=== PATIENT | female | born 1960 | race Caucasian/White ===

== ENCOUNTER 2024-01-13 09:12 | Outpatient (AMB) | payer BC, SELFPAY ==
--- NOTE | 2024-01-13 09:21 | A.OFFPC_ITS ---
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 Required: No Allergies No Known Allergies Allergy (Verified 01/13/24 09:21) Medication List - Last Reconciled 01/13/24 by Susan Campos PA-C spironolactone 25 mg PO DAILY Tobacco use date assessed: 01/13/24 Fall risk assessment: No Falls in past year Last assessed Fall Risk: 01/13/24 Dental Screening Dental Screen Date: 01/13/24 Did you have a dental visit in the last 12 months?: Yes Did you have a dental problem in the last 6 months where you did not have access to dental care?: No Was dental information given to patient?: Patient has dentist HPI IDA from [facility] HPI Details Patient is a 64 year old [facility] She is transferring from [facility]. She was last seen by myself in 07/11/2023. She has a significant past medical history of hypertension, tobacco use, anxiety, tubular adenoma, and of cirrhosis which is a more recent diagnosis within the last year. Psych: Has a hard time sleeping but is getting muscle cramps at night and wonders if that's why. She states that she has a hard time relaxing. She is stressed a lot with having her granddaughter at home. She recently took her in and has been helping her with her emotions and her animals. GI: She states that she has completely quit drinking. She follows with GI at [facility]. CV: Blood pressure today in the office is 114/58. She is currently on losartan 50 mg and spironolactone 25 mg daily. Colonoscopy: Double endoscopy was 12/16/2022 Mammogram: due Bone density:overdue Pap:overdue, needs referral [facility] Medical History (Updated 01/13/24 @ 12:39 by Susan Campos PA-C) Tubular adenoma of colon Tobacco use Thrombocytopenia Hypokalemia HTN (hypertension) Cirrhosis Anxiety Surgical History (Updated 01/13/24 @ 09:38 by Norma Tom CMA) H/O colonoscopy H/O esophagogastroduodenoscopy Family History (Updated 01/13/24 @ 09:40 by Norma Tom CMA) Mother Diabetes mellitus Father Dementia HTN (hypertension) Maternal Grandmother Diabetes mellitus Social History (Updated 01/13/24 @ 09:39 by Norma Tom CMA) Housing: House Patient Tobacco Use Status: Former Tobacco user Cigarette Packs Per Day: 0.5 Years Smoked: 30 e-Cigarette/Vaping Use: Never Used Second Hand Smoke Exposure: No service: No Current occupational status: retired Cognitive needs: No Hearing needs: No Vision needs: No Questionnaire PHQ-9 Over the last 2 weeks, how often have you been bothered by any of the following problems? 1. Little interest or pleasure in doing things: not at all 2. Feeling down, depressed, or hopeless: not at all 3. Trouble falling or staying asleep, or sleeping too much: nearly every day 4. Feeling tired or having little energy: several days 5. Poor appetite or overeating: not at all 6. Feeling bad about yourself - or that you are a failure or have let yourself or your family down: not at all 7. Trouble concentrating on things, such as reading the newspaper or watching television: not at all 8. Moving or speaking so slowly that other people could have noticed. Or the opposite - being so fidgety or restless that you have been moving around a lot more than usual: not at all 9. Thoughts that you would be better off or of hurting yourself in some way: not at all Total score: 4 Depression Screening Interpretation: Positive Depression Screening Done: Yes 54309 - PHQ-9 Billing: Yes Source: Developed by Drs. Roscoe Fam, Amanda Hook, Miguel A Rangel and colleagues, with an educational estee from [employer]. Thrive Questionnaire Date Thrive assessed: 01/13/24 I am a: Patient What is your living situation today?: I have a steady place to live Within the past 12 months, did the food you bought not last and you didn't have the money to get more?: Never true Within the past 12 months, did you worry whether your food would run out before you got money to buy more?: Never true Do you have trouble paying for medicines?: No Do you have trouble getting transportation to medical appointments?: No Do you have trouble paying your heating and electricity bill?: No Do you have trouble taking care of your child, family member or friend?: No Do you have trouble with day-to-day activities such as bathing, preparing meals, shopping, managing finances, etc.?: No Are you currently unemployed and looking for a job?: No Are you interested in more education?: No Please select the resources that you would like help with: None Currently or been in a relationship where the following occur: No concerns reported THRIVE Score: 0 AUDIT C Alcohol Use Questionnaire (AUDIT-C) 1. How often do you have a drink containing alcohol?: Never 3. How often do you have six or more drinks on one occasion?: Never Total Score: 0 Score Reviewed/Action Taken: Yes CONI-7 AMB Questionnaire CONI-7 Date CONI - 7 assessed: 01/13/24 Feeling nervous, anxious, or on edge: 0 = Not at all Not being able to stop or control worryin = Several days Worrying too much about different things: 1 = Several days Trouble relaxin = Not at all Being so restless that it is hard to sit still: 0 = Not at all Becoming easily annoyed or irritable: 1 = Several days Feeling afraid as if something awful might happen: 0 = Not at all Total CONI-7 score (0-4 normal; 5-9 mild; 10-14 moderate; 15-21 severe): 3 Source: Developed by Drs. Roscoe Fam, Amanda Hook, Miguel A Rangel and colleagues, with an educational estee from [employer]. CONI-7 Assessment Billing CONI-7 Assessment Tool: CONI-7 Assessment 28659 Physical exam (Primary Care) Vital Signs: Last Vital Signs Temp 98.1 F 01/13/24 09:29 Pulse 66 01/13/24 09:29 Resp 14 01/13/24 09:29 BP 114/58 L 01/13/24 09:29 Pulse Ox 98 01/13/24 09:29 Oxygen Delivery Method Room Air 01/13/24 09:29 BMI result Body Mass Index 20.4 Tobacco/Smoking Status: Tobacco use Status Tobacco use date assessed 01/13/24 01/13/24 09:32 Patient Tobacco Use Status Former Tobacco user 01/13/24 09:39 e-Cigarette/Vaping Use Never Used 01/13/24 09:39 PHQ-9: PHQ-9 Score PHQ-9: Total score 4 01/13/24 09:48 Depression Screening Interpretation: Positive Thrive Assessment: Date of Thrive Assessment Date Thrive assessed 01/13/24 01/13/24 09:41 Currently or been in a relationship where the following occur: No concerns rep orted Const Orientation/consciousness: patient oriented x3 HENMT Ears: hearing grossly normal bilaterally Neck Thyroid: Thyroid normal Lymphatic: no lymphadenopathy noted Resp Auscultation: clear to auscultation bilaterally Cardio Rate: regular rate Rhythm: regular rhythm Heart sounds: S1 normal heart sound present and S2 normal heart sound present GI Inspection: Yes normal to inspection Palpation (GI): Soft to palpation and Other GI palpation findings present (nontender, no cva tenderness) Auscultation: normoactive bowel sounds Rectal Exam - Female: deferred Skin General skin exam: no rashes or lesions noted Neuro General: patient oriented x3, gait normal and no focal motor deficits Assessment and Plan Assessment & Plan (1) Leg cramps: Code(s): R25.2 - Cramp and spasm Plan: labs ordered (2) Polyarthralgia: Code(s): M25.50 - Pain in unspecified joint Plan: as above, does not yet want to see ortho or PT (3) Foot callus: Code(s): L84 - Corns and callosities Plan: ref podiatry (4) Peripheral neuropathy: Code(s): G62.9 - Polyneuropathy, unspecified Qualifiers: Peripheral neuropathy type: polyneuropathy, unspecified Qualified Code(s): G62.9 - Polyneuropathy, unspecified Plan: labs ordered, discussed possible EMG, ? related to ETOH (5) Cirrhosis: Code(s): K74.60 - Unspecified cirrhosis of liver Qualifiers: Hepatic cirrhosis type: alcoholic cirrhosis Ascites presence: without ascites Qualified Code(s): K70.30 - Alcoholic cirrhosis of liver without ascites Plan: continue avoiding alcohol continue with GI (6) Thrombocytopenia: Code(s): D69.6 - Thrombocytopenia, unspecified Plan: labs ordered (7) HTN (hypertension): Code(s): I10 - Essential (primary) hypertension Qualifiers: Hypertension type: primary hypertension Qualified Code(s): I10 - Essential (primary) hypertension Plan: reduce losartan to 25 mg. labs ordered today. (8) Insomnia: Code(s): G47.00 - Insomnia, unspecified Qualifiers: Insomnia type: unspecified Qualified Code(s): G47.00 - Insomnia, unspecified Plan: will start trazodone. discussed risks and benefits and adverse effects. Plan bone density ordered mammo ordered auto service representative referral placed Orders: Orders Complete Blood Count Auto Diff Today D69.6 - Thrombocytopenia, unspecified, G62.9 - Polyneuropathy, unspecified, I10 - Essential (primary) hypertension, K74.60 - Unspecified cirrhosis of liver, M25.50 - Pain in unspecified joint, R25.2 - Cramp and spasm Comprehensive [place]. Panel Fast Today D69.6 - Thrombocytopenia, unspecified, G62.9 - Polyneuropathy, unspecified, I10 - Essential (primary) hypertension, K74.60 - Unspecified cirrhosis of liver, M25.50 - Pain in unspecified joint, R25.2 - Cramp and spasm Magnesium Today D69.6 - Thrombocytopenia, unspecified, G62.9 - Polyneuropathy, unspecified, I10 - Essential (primary) hypertension, K74.60 - Unspecified cirrhosis of liver, M25.50 - Pain in unspecified joint, R25.2 - Cramp and spasm Lyme IgG/IgM w/reflex to WB Today D69.6 - Thrombocytopenia, unspecified, G62.9 - Polyneuropathy, unspecified, I10 - Essential (primary) hypertension, K74.60 - Unspecified cirrhosis of liver, M25.50 - Pain in unspecified joint, R25.2 - Cramp and spasm Hemoglobin A1c Today D69.6 - Thrombocytopenia, unspecified, G62.9 - Polyneuropathy, unspecified, I10 - Essential (primary) hypertension, K74.60 - Unspecified cirrhosis of liver, M25.50 - Pain in unspecified joint, R25.2 - Cramp and spasm Vitamin B12 and Folate Today D69.6 - Thrombocytopenia, unspecified, G62.9 - Polyneuropathy, unspecified, I10 - Essential (primary) hypertension, K74.60 - Unspecified cirrhosis of liver, M25.50 - Pain in unspecified joint, R25.2 - Cramp and spasm TSH reflex Free T4 Today D69.6 - Thrombocytopenia, unspecified, G62.9 - Polyneuropathy, unspecified, I10 - Essential (primary) hypertension, K74.60 - Unspecified cirrhosis of liver, M25.50 - Pain in unspecified joint, R25.2 - Cramp and spasm Ferritin Today D69.6 - Thrombocytopenia, unspecified, G62.9 - Polyneuropathy, unspecified, I10 - Essential (primary) hypertension, K74.60 - Unspecified cirrhosis of liver, M25.50 - Pain in unspecified joint, R25.2 - Cramp and spasm IRON PROFILE Today D69.6 - Thrombocytopenia, unspecified, G62.9 - Polyneuropathy, unspecified, I10 - Essential (primary) hypertension, K74.60 - Unspecified cirrhosis of liver, M25.50 - Pain in unspecified joint, R25.2 - Cramp and spasm XR DEXA axial skeleton Today Z78.0 - Asymptomatic menopausal state MM screening mammo BI Today Z12.31 - Encounter for screening mammogram for malignant neoplasm of breast Referrals WEB DESIGN INTERN Referral Z01.419 - Encounter for gynecological examination (general) (routine) without abnormal findings Thoracic/General Surgery Referral Z87.891 - Personal history of nicotine dependence Podiatry Referral L84 - Corns and callosities Medications: New losartan 25 mg PO DAILY 90 tabs 0RF trazodone 50 mg PO BEDTIME 90 tabs 1RF Coding Level of Care Code Est Pt Level 4 (64689) Complex EM visit Add On G2211 Diagnoses Leg cramps R25.2 Polyarthralgia M25.50 Foot callus L84 Peripheral polyneuropathy G62.9 Peripheral neuropathy type: polyneuropathy, unspecified Alcoholic cirrhosis of liver without ascites K70.30 Hepatic cirrhosis type: alcoholic cirrhosis Ascites presence: without ascites Thrombocytopenia D69.6 Primary hypertension I10 Hypertension type: primary hypertension Insomnia, unspecified type G47.00 Insomnia type: unspecified Additional Codes CONI-7 Assessment Billing - CONI-7 Assessment Tool: CONI-7 Assessment 17849 ([id number])
[2024-01-13 09:29] VITALS: BP 114/58; PULSE 66; RESP 14; TEMP 36.7; O2SAT 98; BMI 20.4
== END 2024-01-13 10:22 | disposition home or self-care (01) ==
PROVIDERS: PCP Physician Assistant; Visit Provider Physician Assistant
DX: R25.2 Cramp and spasm (principal); K70.30 Alcoholic cirrhosis of liver without ascites; D69.6 Thrombocytopenia, unspecified; M25.50 Pain in unspecified joint; L84 Corns and callosities; G62.9 Polyneuropathy, unspecified; I10 Essential (primary) hypertension; G47.00 Insomnia, unspecified
CPT/HCPCS: 99214

== ENCOUNTER 2024-01-15 08:46 | Outpatient (REF) | payer BC, SELFPAY ==
[2024-01-15 11:42] LABS: MANUAL DIFF FLAG NO
[2024-01-15 11:49] LABS: Basophils Percent Auto 0.7 % (0-2); Eosinophils Absolute Auto 0.1 X10*3/uL (0.0-0.4); Eosinophils Percent Auto 2.6 % (0-4); Hematocrit 39.2 % (37.0-47.0); Hemoglobin 13.2 g/dl (12.0-16.0); Imm Gran Abs Auto 0.01 X10*3/uL (0.00-0.03); Imm Gran Pct Auto 0.4 % (0.0-0.4); Lymphocytes Absolute Auto 0.6 X10*3/uL (1.2-4.9); Lymphocytes Percent Auto 22.8 % (20-40); Mean Corpuscular HGB Conc 33.7 g/dl (31.0-35.0); Mean Corpuscular Hemoglobin 31.7 pg (27.0-33.0); Mean Platelet Volume 11.9 fL (9.4-12.3); Monocytes Absolute Auto 0.3 X10*3/uL (0.1-1.2); Monocytes Percent Auto 9.7 % (2-11); Neutrophils Absolute Auto 1.7 x10*3/uL (2.0-8.3); Neutrophils Percent Auto 63.8 % (45-73); Red Blood Count 4.17 X10*6/uL (4.20-5.50); Red Cell Distribution Width 12.9 % (11.0-16.0); White Blood Count 2.7 X10*3/uL (4.8-10.8)
[2024-01-15 11:50] LABS: Platelet Count 76 X10*3/uL (160-400)
[2024-01-15 12:04] LABS: Estimated Average Glucose 94 mg/dL; Hemoglobin A1c % 4.9 % (<6.0)
[2024-01-15 12:10] LABS: Alanine Aminotransferase 19 U/L (0-31); Albumin Level 4.1 g/dL (3.5-5.0); Alkaline Phosphatase 82 U/L (39-117); Anion Gap 11 (12-20); Aspartate Amino Transferase 29 U/L (5-31); Bilirubin Total 0.9 mg/dL (0.0-1.0); Blood Urea Nitrogen 12 mg/dL (9-16); Calcium 9.4 mg/dL (8.4-10.2); Carbon Dioxide 26 mmol/L (22-29); Chloride 106 mmol/L (96-108); Estimated Glomerular Filt Rate > 60; Glucose Fasting 87 mg/dL (60-99); Iron 80 mcg/dL (30-160); Percent Iron Saturation 32 % (15-50); Potassium 3.8 mmol/L (3.3-5.1); Sodium 139 mmol/L (135-145); Total Iron Binding Capacity 249 mcg/dL (228-428); Total Protein 6.6 g/dL (6.5-8.0); Unsaturated Iron Binding 169 ug/dL
[2024-01-15 12:29] LABS: Ferritin 235 ng/mL (10-250); TSH reflex Free T4 0.96 uIU/mL (0.32-4.0)
[2024-01-15 12:36] LABS: Folate 12.5 ng/mL (> or = 4.0); Vitamin B12 580 pg/mL (200-900)
[2024-01-18 17:14] LABS: Lyme Abs Screen <0.90 index
== END 2024-01-15 08:47 | disposition home or self-care (01) ==
LOC: HO.WFDLDS 08:46
PROVIDERS: Visit Provider Physician Assistant
DX: G62.9 Polyneuropathy, unspecified (principal); M25.50 Pain in unspecified joint; R25.2 Cramp and spasm; K74.60 Unspecified cirrhosis of liver; D69.6 Thrombocytopenia, unspecified; I10 Essential (primary) hypertension; Z13.1 Encounter for screening for diabetes mellitus
CPT/HCPCS: 36415; 80053; 82607; 82728; 82746; 83036; 83540; 83735; 84443; 85025; 86617; 86618

== ENCOUNTER 2024-02-24 10:00 | Outpatient (AMB) | payer BC, SELFPAY ==
--- NOTE | 2024-02-24 10:03 | MHC.PC.OV ---
Vital Signs 02/24/24 10:10 Height 5 ft 6.34 in Weight 128 lb 6 oz BMI 20.5 BP 128/62 Blood Pressure Location Lt brachial Position Sitting Respiration 16 Pulse 62 Pulse Source Pulse Oximeter Pulse Oximetry (%) 100 Oxygen Delivery Method Room Air Intake Visit Reasons: med follow up Intake Note: Follow up. Bilateral leg pain, upper thigh. Wants to know if she can cut her Losartan 50mg in half to use them up. Trazadone is helping getting to sleep, but not staying asleep. Allergies No Known Allergies Allergy (Verified 02/24/24 10:08) Medication List - Last Reconciled 02/24/24 by Susan Campos PA-C losartan 25 mg PO DAILY spironolactone 25 mg PO DAILY trazodone 50 mg PO BEDTIME Tobacco use date assessed: 01/13/24 Dental Screening Dental Screen Date: 01/13/24 HPI med follow up HPI Details Patient is a 64-year-old female who presents today for a follow up. At her last visit we reduced her blood pressure regimen and started her on trazodone. CV: Blood pressure today in the office is 122/62. She is on spironolactone 25 mg and losartan 25 mg. She is tolerating this well. Does not feel lightheaded. Psych: On trazodone. Tolerates it well but still wakes up at night. She still gets some muscle cramps in her legs at night. She states sometimes that will wake her up. She has not tried anything topical but really does not want to do much about this. We did review her last labs and she does state that she is usually well hydrated but does walk funny. Attributes this to her callused feet in the way she has to walk but has an appointment with podiatry next week. [facility] Medical History (Updated 02/24/24 @ 10:42 by Susan Campos PA-C) Cirrhosis HTN (hypertension) Personal history of nicotine dependence Thrombocytopenia Tubular adenoma of colon Hypokalemia Anxiety Surgical History (Updated 02/15/24 @ 15:34 by Noreen Landa PA-C) History of esophagogastroduodenoscopy (EGD) History of colonoscopy Family History (Updated 01/13/24 @ 09:40 by Norma Tom CMA) Mother Diabetes mellitus Father Dementia HTN (hypertension) Maternal Grandmother Diabetes mellitus Social History (Updated 01/13/24 @ 09:39 by Norma Tom CMA) Housing: House Patient Tobacco Use Status: Former Tobacco user Cigarette Packs Per Day: 0.5 Years Smoked: 30 e-Cigarette/Vaping Use: Never Used Second Hand Smoke Exposure: No service: No Current occupational status: retired Cognitive needs: No Hearing needs: No Vision needs: No Questionnaire Thrive Questionnaire Date Thrive assessed: 01/13/24 CONI-7 AMB Questionnaire CONI-7 Date CONI - 7 assessed: 01/13/24 Source: Developed by Drs. Roscoe Fam, Amanda Hook, Miguel A Rangel and colleagues, with an educational estee from [employer]. Physical exam (Primary Care) Vital Signs: Last Vital Signs Pulse 62 02/24/24 10:10 Resp 16 02/24/24 10:10 BP 128/62 02/24/24 10:10 Pulse Ox 100 02/24/24 10:10 Oxygen Delivery Method Room Air 02/24/24 10:10 BMI result Body Mass Index 20.5 Tobacco/Smoking Status: Tobacco use Status Tobacco use date assessed 01/13/24 02/24/24 10:05 Patient Tobacco Use Status Former Tobacco user 02/24/24 10:05 e-Cigarette/Vaping Use Never Used 02/24/24 10:05 Thrive Assessment: Date of Thrive Assessment Date Thrive assessed 01/13/24 02/24/24 10:05 Const Orientation/consciousness: patient oriented x3 HENMT Ears: hearing grossly normal bilaterally Neck Thyroid: Thyroid normal Lymphatic: no lymphadenopathy noted Resp Auscultation: clear to auscultation bilaterally Cardio Rate: regular rate Rhythm: regular rhythm Heart sounds: S1 normal heart sound present and S2 normal heart sound present GI Inspection: Yes normal to inspection Palpation (GI): Soft to palpation and Other GI palpation findings present (nontender, no cva tenderness) Auscultation: normoactive bowel sounds Rectal Exam - Female: deferred Skin General skin exam: no rashes or lesions noted Neuro General: patient oriented x3, gait normal and no focal motor deficits Results Reviewed Results Reviewed: Laboratory Tests 01/15/24 08:48 Sodium 139 Potassium 3.8 Chloride 106 Carbon Dioxide 26 Anion Gap 11 L BUN 12 Creatinine 0.62 Estimated GFR > 60 Fasting Glucose 87 Estimat Average Glucose 94 Hemoglobin A1c % 4.9 Calcium 9.4 Magnesium 2.0 Iron 80 TIBC 249 Ferritin 235 Total Bilirubin 0.9 AST 29 ALT 19 Alkaline Phosphatase 82 Total Protein 6.6 Albumin 4.1 Vitamin B12 580 Folate 12.5 TSH 0.96 Assessment and Plan Assessment & Plan (1) Thrombocytopenia: Code(s): D69.6 - Thrombocytopenia, unspecified Plan: will monitor cbc (2) Leukopenia: Code(s): D72.819 - Decreased white blood cell count, unspecified Qualifiers: Leukopenia type: unspecified Qualified Code(s): D72.819 - Decreased white blood cell count, unspecified Plan: as above (3) HTN (hypertension): Code(s): I10 - Essential (primary) hypertension Qualifiers: Hypertension type: primary hypertension Qualified Code(s): I10 - Essential (primary) hypertension Plan: bp wnl. continue reduced losartan (4) Leg cramps: Code(s): R25.2 - Cramp and spasm Plan: will try magnesium cream and let me know (5) Insomnia: Code(s): G47.00 - Insomnia, unspecified Qualifiers: Insomnia type: unspecified Qualified Code(s): G47.00 - Insomnia, unspecified Plan: We will increase the trazodone. Follow up in a few months. Sooner if needed. Patient understands and agrees with the plan. Medications: New trazodone 100 mg PO BEDTIME 90 tabs 3RF Discontinued trazodone Discontinued Reason: Doctor's Order 50 mg PO BEDTIME 90 tabs 1RF Coding Level of Care Code Est Pt Level 4 (54158) Complex EM visit Add On G2211 Diagnoses Thrombocytopenia D69.6 Leukopenia, unspecified type D72.819 Leukopenia type: unspecified Primary hypertension I10 Hypertension type: primary hypertension Leg cramps R25.2 Insomnia, unspecified type G47.00 Insomnia type: unspecified
[2024-02-24 10:10] VITALS: BP 128/62; PULSE 62; RESP 16; O2SAT 100; BMI 20.5
== END 2024-02-24 10:57 | disposition home or self-care (01) ==
PROVIDERS: PCP Physician Assistant; Visit Provider Physician Assistant
DX: D69.6 Thrombocytopenia, unspecified (principal); D72.819 Decreased white blood cell count, unspecified; I10 Essential (primary) hypertension; R25.2 Cramp and spasm; G47.00 Insomnia, unspecified
CPT/HCPCS: 99214

== ENCOUNTER 2024-02-25 12:52 | Outpatient (REF) | payer BC, SELFPAY ==
--- NOTE | ~2024-02-25 | MM_ITS ---
EXAMINATION: BONE DENSITOMETRY CLINICAL INDICATION: Asymptomatic menopausal state. COMPARISON: This is the patient's baseline examination. TECHNIQUE: Using a [employer] DXA System (software version: 13.1) manufactured by [employer], dual-energy x-ray absorptiometry was performed of the lumbar spine and left hip. The images are of good technical quality. Summary results are attached. FINDINGS: LEFT FEMUR, NECK: BMD 0.771 g/cm2, Z-score -0.3, T-score -1.9, osteopenia. LEFT FEMUR, TOTAL: BMD 0.778 g/cm2, Z-score -0.5, T-score -1.8, osteopenia. AP SPINE L1-L4: BMD 1.110 g/cm2, Z-score 1.2, T-score -0.6, normal. IDENTIFIED RISK FACTORS: Menopause, alcohol use, parental hip fracture, history of fracture (adult), current smoker. HISTORY OF FRACTURE: Spine. MEDICATIONS: Calcium. MM/XR DEXA axial skeleton IMPRESSION: 1. DIAGNOSIS: Osteopenia based on the lowest T-score value of -1.9 in the femoral neck applying World Health Organization criteria. 2. 10-YEAR FRACTURE RISK PREDICTION, FRAX: Major osteoporotic fracture (clinical spine, forearm, hip or shoulder) 31.0%. Hip fracture 6.0%. 3. Treatment Recommendations: NOF guidelines recommend consideration for treatment in postmenopausal women and men age 50 and older presenting with the following: -A hip or vertebral (clinical or morphometric) fracture. -T-score less than or equal to -2.5 at the femoral neck or spine after appropriate evaluation to exclude secondary causes. -Low bone mass at the hip or spine and a 10-year fracture probability by FRAX of greater than or equal to 3% for hip fracture or greater than or equal to 20% for major osteoporotic fracture based on the [place] adapted WHO algorithm. 4. Other Recommendations: All treatment decisions require clinical judgment and consideration of individual patient factors, including patient preferences, comorbidities, previous drug use, risk factors not captured in the FRAX model (e.g. frailty, falls, vitamin D deficiency, increased bone turnover, interval significant decline in bone density) and possible under or overestimation of fracture risk by FRAX. Additional medical evaluation for secondary cause of low bone mineral density may be appropriate. FUTURE SCAN RECOMMENDATION: People with diagnosed cases of osteoporosis or at high risk for fracture should have regular bone mineral density tests. For patients eligible for Medicare, routine testing is allowed once every 2 years. The testing frequency can be increased to one year for patients who have rapidly progressing disease, those who are receiving or discontinuing medical therapy to restore bone mass, or have additional risk factors. Electronically signed by: Carlos Harvey MD 03/02/2024 11:56 AM EDT
--- NOTE | ~2024-02-25 | MM_ITS ---
EXAMINATION: MM SCREENING DIGITAL BREAST TOMOSYNTHESIS, BILATERAL CLINICAL INFORMATION: Screening. Asymptomatic. COMPARISON: Mammography: Comparison is made with available priors TECHNIQUE: Digital breast mammography with tomosynthesis is performed in both the craniocaudal and mediolateral oblique views along with computer-aided detection (CAD). FINDINGS: There are scattered areas of fibroglandular density (ACR BI-RADS breast composition Category b). There are no significant masses, abnormal calcifications, or other abnormalities. MM/MM tomosynthesis screening BI IMPRESSION: No mammographic evidence of malignancy. ASSESSMENT: BI-RADS BI-RADS 1 - Negative RECOMMENDATION: Routine annual mammography screening. 1 year F/U This examination should not preclude the clinical evaluation of a suspicious palpable abnormality. This patient's information was entered into a reminder system with a target due date for their next mammogram. Electronically signed by: Serene Doss DO 03/13/2024 02:24 PM EDT
== END 2024-02-25 12:53 | disposition home or self-care (01) ==
LOC: HO.MAMMO 12:52
PROVIDERS: PCP Physician Assistant; Visit Provider Physician Assistant
DX: Z12.31 Encounter for screening mammogram for malignant neoplasm of breast (principal); Z13.820 Encounter for screening for osteoporosis; Z78.0 Asymptomatic menopausal state
CPT/HCPCS: 77063; 77067; 77080

== ENCOUNTER → 2024-02-25 13:15 | Outpatient (BNV) | payer BC, SELFPAY | PROVIDERS: PCP Physician Assistant; Visit Provider Internal Medicine | DX: Z12.31 Encounter for screening mammogram for malignant neoplasm of breast (principal) | CPT/HCPCS: 77063; 77067 ==

== ENCOUNTER 2024-03-11 10:10 | Outpatient (AMB) | payer BC, SELFPAY ==
--- NOTE | 2024-03-11 07:48 | A.OFFVIS_ITS ---
Intake Visit Reasons: Former Smoker Allergies No Known Allergies Allergy (Verified 02/24/24 10:08) HPI HPI Former Smoker: Details: Initial visit for this 64yo former smoker with a 22PYH. Patient started smoking at age 17 for 45 years at 1/2ppd. She quit 2 years ago - 02/2022. Does use non-nicotine vape pen. . Denies marijuana use. Denies second hand smoke exposure. Denies exposure to chemicals or substances like asbestos. . Denies known family history of lung cancer. Denies personal history of cancers. Denies chest CT in last year. . Denies recent travel outside the [place]. Denies recent respiratory illness or recent hospitalization for respiratory issues. Denies testing positive for COVID. Admits receiving COVID Vaccine. x 2. . Denies fever, chills, new/worsening cough, hemoptysis, hoarseness or dysphagia. Denies significant chest pain, significant dyspnea or unintentional weight loss. Patient Lung Cancer Screening Questionnaire reviewed with patient by provider. . Shared Decision Making Completed. Patient meets criteria. Discussed in detail with patient, the risk vs benefit of LDCT screening. Patient consents to proceed with scan. Discussed and encouraged continued smoking cessation. [facility]LY [facility], [facility] Medical History (Updated 03/11/24 @ 10:11 by Noreen Landa PA-C) Cirrhosis HTN (hypertension) Personal history of nicotine dependence Thrombocytopenia Tubular adenoma of colon Hypokalemia Anxiety Surgical History (Updated 03/11/24 @ 10:27 by Noreen Landa PA-C) History of foot surgery History of nasal septoplasty History of esophagogastroduodenoscopy (EGD) History of colonoscopy Family History (Updated 01/13/24 @ 09:40 by Norma Tom CMA) Mother Diabetes mellitus Father Dementia HTN (hypertension) Maternal Grandmother Diabetes mellitus Social History (Updated 03/11/24 @ 10:11 by Noreen Landa PA-C) Housing: House Patient Tobacco Use Status: Former Tobacco user Years Smoked: (onset 17yo, 1/2ppd x 45yrs, 22pyh - quit 02/2022) e-Cigarette/Vaping Use: Never Used Second Hand Smoke Exposure: No service: No Current occupational status: retired Cognitive needs: No Hearing needs: No Vision needs: No Assessment & Plan Assessment & Plan (1) Personal history of nicotine dependence: Comment: (onset 17yo, 1/2ppd x 45yrs, 22pyh - quit 02/2022) Code(s): Z87.891 - Personal history of nicotine dependence Category: Medical Plan: - SDM visit completed today in office. - Patient meets criteria for LDCT for lung cancer screening purposes and is asymptomatic. - Smoking cessation counseling offered. Patients can always call [phone]. - Will arrange for a LDCT scan of the chest for screening purposes at [facility]. - Risks, benefits, and alternatives were discussed in detail and the patient agrees to proceed. - Risks discussed include but are not limited to: radiation exposure, anxiety during testing and while awaiting results, false negatives, false positives and possibility of additional intervention such as further imaging or surgical procedures for benign disease. - Benefits are obviously detection of lung cancer at an early stage which can lead to improved outcomes. - Discussed the importance of screening program compliance with adherence to yearly LDCT scan as scheduled - or sooner interval scans for personalized screening regimen. - Discussed follow up plan. Our office will send a letter discussing results and if needed set up phone call and office visit based on CT findings. - Patient educated on results categorization and the management decisions for suspicious findings potentially found on the screening LDCT scan. Any patient with a Lung RADS score of 3 or 4 will be reviewed by a multidisciplinary team at [facility] to form a plan of action in regards to scan findings. - If further work up is warranted for a suspicious lung finding this will be followed by the Lung Cancer Screening program in conjunction with the Thoracic Surgery Department at [facility]. - A copy of the office note and LDCT will be sent to the patient's PCP - as well as documentation on any associated further plans of care. - Incidental findings on LDCT are the PCP's responsibility. These findings are indicated with an S finding on the LDCT Assessment. A note discussing the findings will be sent to the PCP who is then responsible for further management. - All questions answered.? Coding Level of Care Code Lung Cancer Screening G0296 Diagnoses Personal history of nicotine dependence Z87.891
== END 2024-03-11 10:59 | disposition home or self-care (01) ==
PROVIDERS: PCP Physician Assistant; Visit Provider Physician Assistant Medical
DX: Z87.891 Personal history of nicotine dependence (principal)
CPT/HCPCS: G0296

== ENCOUNTER 2024-03-11 10:23 | Outpatient (REF) | payer BC, SELFPAY ==
--- NOTE | ~2024-03-11 | CT_ITS ---
EXAMINATION: CT LOW-DOSE SCREENING CHEST WITHOUT CONTRAST CLINICAL INFORMATION: Personal history of nicotine dependence. The patient has a 48 pack-year history of smoking, having quit 2 years ago. COMPARISON: None available. TECHNIQUE: Multidetector volumetric CT imaging of the chest is performed on a Siemens SOMATOM Definition scanner without contrast using low dose technique. Additional 2D coronal and sagittal reformatted images and axial 3D maximum intensity projection (MIP) images are generated on the CT workstation. This CT examination was performed using dose optimization techniques as appropriate, variously including the following: *Automated exposure control *Adjustment of mA and/or kV according to patient size (this includes techniques or standardized protocols for targeted exams where dose is matched to indication/reason for exam; i.e. extremities or head) *Use of iterative reconstruction technique TOTAL EXAM DLP: 35 mGy-cm. CTDIvol: 1.0 mGy. FINDINGS: PULMONARY NODULES: At least 10 small pulmonary nodule [ ] densities are seen scattered throughout the lungs and gaines images of all have been saved. Some are calcified granulomas, some are not calcified. There is a disc-like density seen measuring 10.4 x 6.3 x 3.5 mm in the right upper lobe in an area of pleural-parenchymal scarring (see gaines images). Multiple other smaller nodular densities are seen the majority of which are under 5 mm in size. LUNGS: Lungs bilaterally symmetrically expanded. Moderate biapical pleural-parenchymal scarring is present, right greater than left. There is [id number] emphysema and bronchial thickening without bronchiectasis. No effusion or pneumothorax. Central airways patent. MEDIASTINUM: No mediastinal, hilar or axillary adenopathy or free fluid collection. CORONARY ARTERY CALCIFICATION: None visualized on this study. THYROID GLAND: Unremarkable to the extent seen. CARDIOVASCULAR STRUCTURES: Aortic and heart size normal. No pericardial effusion. CHEST WALL/AXILLA: Unremarkable. UPPER ABDOMEN: Included portions of the solid organs in the upper abdomen unremarkable on noncontrast imaging. OSSEOUS STRUCTURES: No suspicious focal findings. CT/CT lung screening IMPRESSION: Initial exam demonstrates multiple lung nodules the largest of which measures 10.4 x 6.3 x 3.5 mm (mean 6.7 mm). This must be considered suspicious by lung RADS criteria as it is a baseline nodule of greater than 6 mm. ASSESSMENT: 1. Lung-RADS Category 4A: Suspicious findings. N/A 2. Lung-RADS Category S: Negative. There are no clinically significant or potentially clinically significant findings not related to the lungs requiring urgent additional evaluation. RECOMMENDATION: A 3-month follow up low-dose lung CT scan is recommended. An order for CT LUNG CANCER SCREENING SHORT INTERVAL FOLLOWUP ([id number]) can be placed. Electronically signed by: Rojelio Kruger MD 05/05/2024 05:00 PM RUSLAN NAVA
== END 2024-03-11 10:24 | disposition home or self-care (01) ==
LOC: HO.CT 10:23
PROVIDERS: PCP Physician Assistant; Visit Provider Physician Assistant Medical
DX: Z12.2 Encounter for screening for malignant neoplasm of respiratory organs (principal); Z87.891 Personal history of nicotine dependence
CPT/HCPCS: 71271

== ENCOUNTER 2024-06-29 10:35 | Outpatient (AMB) | payer BC, SELFPAY ==
[2024-06-29 10:58] VITALS: BP 126/84; BMI 21.2
--- NOTE | 2024-06-29 10:58 | MHC.OFFVIS ---
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 Attempting to eat a healthy diet with calcium and vitamin D and stays active with exercise. Last pap smear; 2020, negative per verbal report [facility]. She declines STD testing. Last mammogram; 2023. Colonoscopy is UTD. Denies any family history of breast, ovarian or colon cancer. [facility] Medical History Cirrhosis HTN (hypertension) Personal history of nicotine dependence Thrombocytopenia Tubular adenoma of colon Hypokalemia Anxiety Surgical History History of foot surgery History of nasal septoplasty History of esophagogastroduodenoscopy (EGD) History of colonoscopy Family History Mother Diabetes mellitus Father Dementia HTN (hypertension) Maternal Grandmother Diabetes mellitus Social History Housing: House Patient Tobacco Use Status: Former Tobacco user Years Smoked: (onset 17yo, 1/2ppd x 45yrs, 22pyh - quit 02/2022) e-Cigarette/Vaping Use: Never Used Second Hand Smoke Exposure: No service: No Current occupational status: retired Cognitive needs: No Hearing needs: No Vision needs: No Female Reproductive History Menstrual Total pregnancies: 5 Full term: 4 Number of Living Children: 4 Ab induced: 1 Review of Systems Const All systems reviewed & are unremarkable except as noted in HPI and below Reports as per HPI Eyes Reports no additional complaints ENT Reports no additional complaints Card Reports no additional complaints Resp Reports no additional complaints GI Reports as per HPI and Reports no additional complaints Reports as per HPI Musc Reports no additional complaints Skin/Breast Reports as per HPI Neuro Reports no additional complaints Psych Reports no additional complaints Endo Reports no additional complaints Christiano/Lymph Reports no additional complaints Aller/Immun Reports no additional complaints Physical Exam Vital Signs: Last Vital Signs BP 126/84 06/29/24 10:58 BMI result Body Mass Index 21.2 Const General: cooperative, healthy appearing, no acute distress, well developed and alert Orientation/consciousness: patient oriented x3 HEENT Head: Yes normal to inspection Eyes General: appearance normal, both eyes and all related structures Neck Neck: Yes normal visual inspection Thyroid: Thyroid normal Chest Chest palpation & inspection: normal inspection of the chest and other (no puckering, dimpling, peau de orange, retraction, discharge, masses) Breast/axilla inspection: normal inspection of the breasts Breast/axilla palpation: normal palpation of the breasts Resp Effort & Inspection: normal respiratory effort GI Inspection: Yes normal to inspection Palpation (GI): Soft to palpation Rectal Exam - Female: deferred General: Yes bladder normal to palpation and Yes other (Urethral Curuncle) External Female Exam: normal external appearance and normal appearance of the urethra Speculum Exam - Vagina: normal palpation and vagina atrophic Speculum Exam - Cervix: normal appearance of the cervix and normal palpation Bimanual exam- vagina & uterus: normal bimanual exam, normal palpation, uterine size normal, bladder normal to palpation, normal palpation and non-tender Bimanual Exam- Adnexa, other: no masses Skin General skin exam: no rashes or lesions noted Rashes: no rashes Neuro General: patient oriented x3 Cognition (Neuro): normal cognition Extrem General: Yes normal to inspection Psych Attitude: cooperative Thought process: Normal thought process present Results AMB Urinalysis, Automated UA Leukoctes 0 Teresa/uL Last Edit by OMAR López on 06/29/24 11:08 UA Nitrite Negative Last Edit by OMAR López on 06/29/24 11:08 UA Urobilinogen 0.5 mg/dL Last Edit by OMAR López on 06/29/24 11:08 UA Protein 0 mg/dL Last Edit by OMAR López on 06/29/24 11:08 UA pH 6.0 Last Edit by Marta Goddard RMA on 06/29/24 11:08 UA Blood 0 Sidney/uL Last Edit by Marta GoddardOMAR on 06/29/24 11:08 UA Specific [place] 1.010 Last Edit by Marta GoddardOMAR on 06/29/24 11:08 UA Ketone Negative Last Edit by Marta GoddardOMAR on 06/29/24 11:08 UA Bilirubin 0 mg/dL Last Edit by Marta OMAR Mahoney on 06/29/24 11:08 UA Glucose 0 mg/dL Last Edit by Marta Abrahan PadminiOMAR mora on 06/29/24 11:08 Results Reviewed Results Reviewed: Laboratory Last Values Urine pH (Auto) 6.0 06/29/24 11:07 Specific [place] (Auto) 1.010 06/29/24 11:07 Urine Protein (Auto) 0 mg/dL 06/29/24 11:07 Glucose (UA)(Auto) 0 mg/dL 06/29/24 11:07 Urine Ketones (Auto) Negative 06/29/24 11:07 Urine Blood (Auto) 0 Sidney/uL 06/29/24 11:07 Urine Nitrite (Auto) Negative 06/29/24 11:07 Urine Bilirubin (Auto) 0 mg/dL 06/29/24 11:07 Urine Urobilinogen (Auto) 0.5 mg/dL 06/29/24 11:07 Leukocyte Esterase (Auto) 0 Teresa/uL 06/29/24 11:07 Assessment & Plan Assessment & Plan (1) Encounter for well woman exam with routine gynecological exam: Code(s): Z01.419 - Encounter for gynecological examination (general) (routine) without abnormal findings Category: Medical (2) Atrophic vaginitis: Code(s): N95.2 - Postmenopausal atrophic vaginitis Plan Discussed: Current recommendations for pap smears per ASCCP guidelines. Breast awareness, periodic self breast exams and yearly mammogram. Maintain a healthy lifestyle, well balanced diet including Calcium 1,200 mg and Vitamin D 600 IU daily, and routine exercise. Replens moisturizer, follow up prn if no improvement. Continue w/lubricant. Contact the office with any postmenopausal bleeding. Patient verbalizes understanding and agrees to the plan of care. She was given opportunity to ask questions and all questions were answered to the best of my ability. 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 This note is constructed using voice recognition software. While every effort has been made to ensure accuracy, whipped topping supervisor errors may have been included. Orders: Orders AMB Urinalysis Automated Today R10.2 - Pelvic and perineal pain Coding Level of Care Code New Pt Prev Care 40-64y(01901) Diagnoses Encounter for well woman exam with routine gynecological exam Z01.419 Atrophic vaginitis N95.2
== END 2024-06-29 11:44 | disposition home or self-care (01) ==
PROVIDERS: PCP Physician Assistant; Visit Provider Advanced Practice Midwife
DX: Z01.419 Encounter for gynecological examination (general) (routine) without abnormal findings (principal); N95.2 Postmenopausal atrophic vaginitis; R10.2 Pelvic and perineal pain
CPT/HCPCS: 99386; 99459

== ENCOUNTER → 2024-06-29 10:35 | Outpatient (BNVA) | payer BC, SELFPAY | PROVIDERS: PCP Physician Assistant; Visit Provider Advanced Practice Midwife | DX: Z01.419 Encounter for gynecological examination (general) (routine) without abnormal findings (principal); N95.2 Postmenopausal atrophic vaginitis; R10.2 Pelvic and perineal pain | CPT/HCPCS: 81003 ==

== ENCOUNTER 2024-08-31 08:25 | Outpatient (AMB) | payer BC, SELFPAY ==
--- NOTE | 2024-08-31 08:29 | A.OFFPC_ITS ---
Vital Signs 08/31/24 08:34 Height 5 ft 6.34 in Weight 135 lb 2 oz BMI 21.6 BP 110/60 Blood Pressure Location Lt brachial Position Sitting Respiration 12 Pulse 62 Pulse Source Pulse Oximeter Pulse Oximetry (%) 99 Oxygen Delivery Method Room Air Intake Visit Reasons: med follow up Intake Note: Follow up. Right arm pain. Started in the shoulder and is going down to the elbow. Went to the ER for cellulits after getting a sliver Social Media Coordinator Required: No Allergies No Known Allergies Allergy (Verified 08/31/24 08:34) Medication List - Last Reconciled 08/31/24 by Susan Campos PA-C losartan 25 mg PO DAILY spironolactone 25 mg PO DAILY trazodone 100 mg PO BEDTIME Tobacco use date assessed: 08/31/24 Fall risk assessment: No Falls in past year Last assessed Fall Risk: 08/31/24 Dental Screening Dental Screen Date: 01/13/24 HPI med follow up HPI Details Patient is a 64-year-old female who presents today for a follow up. She was recently in the hospital on 08/23/24 and discharged on 08/24/2024 for a ascending bacterial lymphangitis of the left finger/arm. She was discharged on cephalexin. She was continued on her losartan and spironolactone. While she was hospitalized she did receive IV vancomycin. Since the hospitalization she has been feeling much better. Just finished the antibiotics. CV: Blood pressure today in the office is 110/60 She is on spironolactone 25 mg and losartan 25 mg. She is tolerating this well. Psych: On trazodone for insomnia but wakes up feeling drowsy. Does not like this medication. She would like to try something else. She does have a lot of stress in her life by taking care of her granddaughter and her granddaughter's horse. GI: Following with GI for cirrhosis. Has a beer intermittently. Pulm: We reviewed her last imaging and that she had an abnormal chest CT that needed follow up in 3 months which would have been May. She states that she was not contacted to schedule this. She tells me that she completely forgot about a even though she did have a conversation regarding the abnormal features of the chest CT. She states that time flu by and she forgot about this. Denies any cough, shortness a breath or hemoptysis. Denies any weight loss, chest pain. PFSH Medical History Cirrhosis HTN (hypertension) Personal history of nicotine dependence Thrombocytopenia Tubular adenoma of colon Hypokalemia Anxiety Surgical History History of foot surgery History of nasal septoplasty History of esophagogastroduodenoscopy (EGD) History of colonoscopy Family History (Updated 06/29/24 @ 13:16 by OMAR López) Mother Diabetes mellitus Father Dementia HTN (hypertension) Maternal Grandmother Diabetes mellitus Paternal Grandmother History of breast cancer Social History Housing: House Alcohol intake: never Patient Tobacco Use Status: Former Tobacco user Years Smoked: (onset 17yo, 1/2ppd x 45yrs, 22pyh - quit 02/2022) e-Cigarette/Vaping Use: Never Used Second Hand Smoke Exposure: No service: No Current occupational status: retired Cognitive needs: No Hearing needs: No Vision needs: No Questionnaire PHQ-9 Over the last 2 weeks, how often have you been bothered by any of the following problems? 1. Little interest or pleasure in doing things: not at all 2. Feeling down, depressed, or hopeless: not at all 3. Trouble falling or staying asleep, or sleeping too much: more than half the days 4. Feeling tired or having little energy: nearly every day 5. Poor appetite or overeating: not at all 6. Feeling bad about yourself - or that you are a failure or have let yourself or your family down: not at all 7. Trouble concentrating on things, such as reading the newspaper or watching television: not at all 8. Moving or speaking so slowly that other people could have noticed. Or the opposite - being so fidgety or restless that you have been moving around a lot more than usual: not at all 9. Thoughts that you would be better off or of hurting yourself in some way: not at all Total score: 5 Depression Screening Interpretation: Positive Depression Screening Follow-up: Existing condition and Follow-up Visit Requested Depression Screening Done: Yes 30157 - PHQ-9 Billing: Yes Source: Developed by Drs. Roscoe Fam, Amanda Hook, Miguel A Rangel and colleagues, with an educational estee from [employer]. Thrive Questionnaire Date Thrive assessed: 08/24/24 I am a: Patient What is your living situation today?: I have a steady place to live Within the past 12 months, did the food you bought not last and you didn't have the money to get more?: Never true Within the past 12 months, did you worry whether your food would run out before you got money to buy more?: Never true Do you have trouble paying for medicines?: No Do you have trouble getting transportation to medical appointments?: No Do you have trouble paying your heating and electricity bill?: No Do you have trouble taking care of your child, family member or friend?: No Do you have trouble with day-to-day activities such as bathing, preparing meals, shopping, managing finances, etc.?: No Are you currently unemployed and looking for a job?: No Are you interested in more education?: No Please select the resources that you would like help with: None Currently or been in a relationship where the following occur: No concerns reported THRIVE Score: 0 AUDIT C Alcohol Use Questionnaire (AUDIT-C) 1. How often do you have a drink containing alcohol?: Never Total Score: 0 CONI-7 AMB Questionnaire CONI-7 Date CONI - 7 assessed: 08/31/24 Feeling nervous, anxious, or on edge: 1 = Several days Not being able to stop or control worryin = Several days Worrying too much about different things: 1 = Several days Trouble relaxin = Several days Being so restless that it is hard to sit still: 1 = Several days Becoming easily annoyed or irritable: 1 = Several days Feeling afraid as if something awful might happen: 1 = Several days Total CONI-7 score (0-4 normal; 5-9 mild; 10-14 moderate; 15-21 severe): 7 Source: Developed by Drs. Roscoe Fam, Miguel A Longoria and colleagues, with an educational estee from [employer]. CONI-7 Assessment Billing CONI-7 Assessment Tool: CONI-7 Assessment 69055 Physical exam (Primary Care) Vital Signs: Last Vital Signs Pulse 62 08/31/24 08:34 Resp 12 08/31/24 08:34 BP 110/60 08/31/24 08:34 Pulse Ox 99 08/31/24 08:34 Oxygen Delivery Method Room Air 08/31/24 08:34 BMI result Body Mass Index 21.6 Tobacco/Smoking Status: Tobacco use Status Tobacco use date assessed 08/31/24 08/31/24 08:35 Patient Tobacco Use Status Former Tobacco user 08/31/24 08:32 e-Cigarette/Vaping Use Never Used 08/31/24 08:32 Depression Screening Interpretation: Positive Depression Screening Follow-up: Existing condition and Follow-up Visit Requested Thrive Assessment: Date of Thrive Assessment Date Thrive assessed 08/24/24 08/31/24 08:32 Currently or been in a relationship where the following occur: No concerns reported Const Orientation/consciousness: patient oriented x3 HENMT Ears: hearing grossly normal bilaterally Neck Thyroid: Thyroid normal Lymphatic: no lymphadenopathy noted Resp Auscultation: clear to auscultation bilaterally Cardio Rate: regular rate Rhythm: regular rhythm Heart sounds: S1 normal heart sound present and S2 normal heart sound present GI Inspection: Yes normal to inspection Palpation (GI): Soft to palpation and Other GI palpation findings present (nontender, no cva tenderness) Auscultation: normoactive bowel sounds Rectal Exam - Female: deferred Skin General skin exam: no rashes or lesions noted Neuro General: patient oriented x3, gait normal and no focal motor deficits Results Reviewed Results Reviewed: A 3-month follow up low-dose lung CT scan is recommended. An order for CT LUNG CANCER SCREENING SHORT INTERVAL FOLLOWUP ([id number]) can be placed. Coding Level of Care Code TCM Mod MDM <= 7 Days Complex EM visit Add On G2211 Diagnoses Hospital discharge follow-up Z09 Primary hypertension I10 Hypertension type: primary hypertension Thrombocytopenia D69.6 Alcoholic cirrhosis of liver without ascites K70.30 Hepatic cirrhosis type: alcoholic cirrhosis Ascites presence: without ascites Insomnia, unspecified type G47.00 Insomnia type: unspecified Lung nodules R91.8 Additional Codes CONI-7 Assessment Billing - CONI-7 Assessment Tool: CONI-7 Assessment 65199 ([id number]) PHQ-9 - 74043 - PHQ-9 Billing: Yes ([id number]) Assessment & Plan Assessment & Plan (1) Hospital discharge follow-up: Code(s): Z09 - Encounter for follow-up examination after completed treatment for conditions other than malignant neoplasm Category: Medical Plan: Medications reconciled (2) HTN (hypertension): Code(s): I10 - Essential (primary) hypertension Category: Medical Qualifiers: Hypertension type: primary hypertension Qualified Code(s): I10 - Essential (primary) hypertension Plan: WNL. Continue current regimen (3) Thrombocytopenia: Code(s): D69.6 - Thrombocytopenia, unspecified Category: Medical Plan: CBC at hospital did show platelets of 73. Otherwise CBC was WNL. (4) Cirrhosis: Code(s): K74.60 - Unspecified cirrhosis of liver Category: Medical Qualifiers: Hepatic cirrhosis type: alcoholic cirrhosis Ascites presence: without ascites Qualified Code(s): K70.30 - Alcoholic cirrhosis of liver without ascites Plan: stable just saw [facility] (5) Insomnia: Code(s): G47.00 - Insomnia, unspecified Category: Medical Qualifiers: Insomnia type: unspecified Qualified Code(s): G47.00 - Insomnia, unspecified Plan: will switch to hydroxyzine. (6) Lung nodules: Code(s): R91.8 - Other nonspecific abnormal finding of lung field Category: Medical Plan: Chest CT reordered as urgent. Discussed that if she does not hear she needs to call and let us know. Orders: Orders Complete Blood Count Auto Diff Today D69.6 - Thrombocytopenia, unspecified, G47.00 - Insomnia, unspecified, I10 - Essential (primary) hypertension, K70.30 - Alcoholic cirrhosis of liver without ascites, R91.8 - Other nonspecific abnormal finding of lung field, Z09 - Encounter for follow-up examination after completed treatment for conditions other than malignant neoplasm Microalbumin, Random (w Creat) Today D69.6 - Thrombocytopenia, unspecified, G47.00 - Insomnia, unspecified, I10 - Essential (primary) hypertension, K70.30 - Alcoholic cirrhosis of liver without ascites, R91.8 - Other nonspecific abnormal finding of lung field, Z09 - Encounter for follow-up examination after completed treatment for conditions other than malignant neoplasm CT chest wo IV con Today R91.8 - Other nonspecific abnormal finding of lung field, R93.89 - Abnormal findings on diagnostic imaging of other specified body structures, Z87.891 - Personal history of nicotine dependence Comprehensive [place]. Panel Fast Today D69.6 - Thrombocytopenia, unspecified, G47.00 - Insomnia, unspecified, I10 - Essential (primary) hypertension, K70.30 - Alcoholic cirrhosis of liver without ascites, R91.8 - Other nonspecific abnormal finding of lung field, Z09 - Encounter for follow-up examination after completed treatment for conditions other than malignant neoplasm TSH reflex Free T4 Today D69.6 - Thrombocytopenia, unspecified, G47.00 - Insomnia, unspecified, I10 - Essential (primary) hypertension, K70.30 - Alcoholic cirrhosis of liver without ascites, R91.8 - Other nonspecific abnormal finding of lung field, Z09 - Encounter for follow-up examination after completed treatment for conditions other than malignant neoplasm Medications: New hydroxyzine HCl 25 mg PO BEDTIME 90 tabs 0RF Discontinued trazodone Discontinued Reason: Doctor's Order 100 mg PO BEDTIME 90 tabs 3RF
[2024-08-31 08:34] VITALS: BP 110/60; PULSE 62; RESP 12; O2SAT 99; BMI 21.6
--- OUTSIDE RECORDS SUMMARY | 2024-08-31 08:52 | XMS_ITS | Clinical Summary ---
Author Organization [facility] Address [address] [place] [address] Care Team Providers Care Traffic Division Commanding Officer Name Role Phone Darleen Dinh PA-C Primary Care Provider Allergies No known active allergies Medications No known medications Active Problems Problem Noted Date Diagnosed Date Thrombocytopenia 02/28/2021 Overview: Referred to Hematology Anxiety 01/15/2021 Essential hypertension 01/15/2021 GERD (gastroesophageal reflux disease) History of transient ischemic attack (TIA) 09/01 Varicose vein of leg 09/01/2020 Elevated blood pressure reading 07/31/2020 Tobacco use disorder 07/31/2020 Social History Tobacco Use Types Packs/Day Years Used Date Smoking Tobacco: Every Day Cigarettes 0.3 Smokeless Tobacco: Never Alcohol Use Standard Drinks/Week Comments Yes 0 (1 standard drink = 0.6 oz pur e alcohol) 2 drinks a day Sex and Gender Information Value Date Recorded Sex Assigned at Not on file Gender Identity Not on file Sexual Orientation Not on file Last Filed Vital Signs Vital Sign Reading Time Taken Comments Blood Pressure 144/73 04/17/2021 2:51 PM EDT Pulse 92 04/17/2021 2:51 PM EDT Temperature 36.4 ??C (97.6 ??F) 04/17/2021 2:51 PM ED T Respiratory Rate - - Oxygen Saturation 100% 04/17/2021 2:51 PM EDT Inhaled Oxygen Concentration - - Weight 66.2 kg (146 lb) 04/17/2021 2:51 PM EDT Height 172.7 cm (5' 8 ) 04/17/2021 2:51 PM EDT Body Mass Index 22.2 04/17/2021 2:51 PM EDT Plan of Treatment Health Maintenance Due Date Last Done Comments Hepatitis C Screening 1960 COVID-19 Vaccine (#1) 1960 Pneumococcal Vaccine (1 of 2 - PCV) 01/03/1966 Pneumococcal Vaccine (1 of 2 - PCV) 01/03/1966 Depression Screening 1972 Preventative Health Evaluation 01/03/1978 DTap / Tdap / Td (1 - Tdap) 01/03/1979 Cervical Cancer Screening (P ap Smear) 01/03/1981 Colon Cancer Screening (Colonoscopy) 01/03/2005 Breast Cancer Screening (Mammogram) 01/03/2010 Shingrix-Zoster Vaccine (1 of 2) 01/03/2010 Influenza Vaccine (#1) 2024 RSV Adult > 60+ Yrs or Pregn ant (1 - 1-dose 75+ series) 01/03/2035 Hepatitis B Vaccines Aged Out No long er eligible based on patient's age to complete this topic RSV Ped < 20 months Aged Out No longe r eligible based on patient's age to complete this topic Care Teams Traffic Division Commanding Officer Relationship Specialty Start Date End Date Darleen Dinh PA-C [address] [place] [address] [phone] PCP - General Medical Services 03/19/21
--- OUTSIDE RECORDS SUMMARY | 2024-08-31 08:52 | XMS_ITS | Clinical Summary ---
Author Organization [facility] Facility Address [address] [place] [address] Care Team Providers Care Screen Handler Name Role Phone Susan Campos PA-C Primary Care Provider + Medications losartan (COZAAR) 50 MG tablet Take 50 mg by mouth 1 (one) time each day Active spironolactone (ALDACTONE) 25 MG tablet Take 25 mg by mouth 1 (one) time each day Active Active Problems Problem Noted Date Diagnosed Date Essential (primary) hypertension 10/01/2022 Hypokalemia 10/01/2022 Social History Tobacco Use Types Packs/Day Years Used Date Smoking Tobacco: Former Cigarettes Smokeless Tobacco: Never Tobacco Cessation:Counseling Given: Not Answered Alcohol Use Standard Drinks/Week Comments Yes 0 (1 standard drink = 0.6 oz pur e alcohol) Comments Unknown Sex and Gender Information Value Date Recorded Sex Assigned at Not on file Legal Sex Female 10:24 AM EST Gender Identity Not on file Sexual Orientation Not on file Plan of Treatment Health Maintenance Due Date Last Done Comments Breast Cancer Screening 1960 Pneumococcal Vaccine: Pediat rics (0 to 5 Years) and At-Risk Patients (6 to 64 Years) (1 of 2 - PCV) 01/03/1966 Colorectal Cancer Screening: Annual FOBT 01/03/2009 Colorectal Cancer Screening: Colonoscopy 01/03/2009 Colorectal Cancer Screening: Sigmoidoscopy 01/03/2009 Influenza Vaccine (#1) 2024 Hepatitis B Vaccine Aged Out No longe r eligible based on patient's age to complete this topic Insurance [facility] Care Teams Screen Handler Relationship Specialty Start Date End Date Susan Campos PA-C PCP - General Physician Iron Molder Helper 07/17/22
== END 2024-08-31 09:03 | disposition home or self-care (01) ==
LOC: HO.HMCFM 08:25
PROVIDERS: PCP Physician Assistant; Visit Provider Physician Assistant
DX: I10 Essential (primary) hypertension (principal); D69.6 Thrombocytopenia, unspecified; K70.30 Alcoholic cirrhosis of liver without ascites; Z09 Encounter for follow-up examination after completed treatment for conditions other than malignant neoplasm; G47.00 Insomnia, unspecified; R91.8 Other nonspecific abnormal finding of lung field

== ENCOUNTER → 2024-08-31 08:25 | Outpatient (BNVA) | payer BC, SELFPAY | PROVIDERS: PCP Physician Assistant; Visit Provider Physician Assistant | DX: Z09 Encounter for follow-up examination after completed treatment for conditions other than malignant neoplasm (principal); I10 Essential (primary) hypertension; D69.6 Thrombocytopenia, unspecified; K70.30 Alcoholic cirrhosis of liver without ascites; G47.00 Insomnia, unspecified; R91.8 Other nonspecific abnormal finding of lung field | CPT/HCPCS: 96127 ==

== ENCOUNTER 2024-09-14 13:32 | Outpatient (AMB) | payer BC, SELFPAY ==
--- NOTE | 2024-09-14 13:46 | MHC.PC.OV ---
Vital Signs 09/14/24 13:49 Height 5 ft 6.34 in Weight 136 lb BMI 21.7 BP 110/58 L Blood Pressure Location Rt brachial Position Sitting Respiration 12 Pulse 60 Pulse Source Pulse Oximeter Temp 98.6 F Temp Source Oral Pulse Oximetry (%) 98 Oxygen Delivery Method Room Air Intake Visit Reasons: Urinary tract infection Intake Note: Urgency and painful urination Tobacco Weigher Required: No Allergies No Known Allergies Allergy (Verified 09/14/24 13:56) Medication List - Last Reconciled 09/14/24 by Susan Campos PA-C hydroxyzine HCl 25 mg PO BEDTIME losartan 25 mg PO DAILY nitrofurantoin monohyd/m-cryst 100 mg (Macrobid) 100 mg PO Q12H 7 days spironolactone 25 mg PO DAILY Tobacco use date assessed: 09/14/24 Dental Screening Dental Screen Date: 01/13/24 HPI Urinary tract infection HPI Details Patient is a 64-year-old female with a significant past medical history of cirrhosis, thrombocytopenia, hypertension and lung nodules presenting today with concerns of a possible UTI. She states a couple days ago she noticed a small amount of blood in the urine along with some dysuria. She tried [id number] Pyridium which was helpful but when it wears off it is painful. No fevers or chills. She thinks that this started because she was a little dehydrated from her recent travel and did not drink as much water she normally does. Denies any flank pain, nausea, vomiting or diarrhea. No lower abdominal pain. CV: Blood pressure is 110/58 today. She is currently on spironolactone 25 mg daily and losartan 25 mg daily. Psych: Has not started that hydroxyzine yet but did just picked this up to see if that will help with sleep. GI: Cirrhosis is stable. Following with [facility] GI. Pulm: Has a history of lung nodules that need follow up. CT was ordered at last appointment. She remains asymptomatic. [facility] Medical History Cirrhosis HTN (hypertension) Personal history of nicotine dependence Thrombocytopenia Tubular adenoma of colon Hypokalemia Anxiety Surgical History History of foot surgery History of nasal septoplasty History of esophagogastroduodenoscopy (EGD) History of colonoscopy Family History Mother Diabetes mellitus Father Dementia HTN (hypertension) Maternal Grandmother Diabetes mellitus Paternal Grandmother History of breast cancer Social History (Updated 08/31/24 @ 08:44 by Norma Tom CMA) Housing: House Alcohol intake: never Patient Tobacco Use Status: Former Tobacco user Years Smoked: (onset 17yo, 1/2ppd x 45yrs, 22pyh - quit 02/2022) e-Cigarette/Vaping Use: Never Used Second Hand Smoke Exposure: No service: No Current occupational status: retired Cognitive needs: No Hearing needs: No Vision needs: No Questionnaire PHQ-9 Over the last 2 weeks, how often have you been bothered by any of the following problems? 2. Feeling down, depressed, or hopeless: not at all Source: Developed by Drs. Roscoe Fam, Miguel A Longoria and colleagues, with an educational estee from [employer]. Thrive Questionnaire Date Thrive assessed: 08/24/24 I am a: Patient What is your living situation today?: I have a steady place to live Within the past 12 months, did the food you bought not last and you didn't have the money to get more?: Never true Within the past 12 months, did you worry whether your food would run out before you got money to buy more?: Never true Do you have trouble paying for medicines?: No Do you have trouble getting transportation to medical appointments?: No Do you have trouble paying your heating and electricity bill?: No Do you have trouble taking care of your child, family member or friend?: No Do you have trouble with day-to-day activities such as bathing, preparing meals, shopping, managing finances, etc.?: No Are you currently unemployed and looking for a job?: No Are you interested in more education?: No Please select the resources that you would like help with: None Currently or been in a relationship where the following occur: No concerns reported THRIVE Score: 0 CONI-7 AMB Questionnaire CONI-7 Date CONI - 7 assessed: 08/31/24 Source: Developed by Drs. Roscoe Fam, Amanda Hook, Miguel A Rangel and colleagues, with an educational estee from [employer]. Physical exam (Primary Care) Vital Signs: Last Vital Signs Temp 98.6 F 09/14/24 13:49 Pulse 60 09/14/24 13:49 Resp 12 09/14/24 13:49 BP 110/58 L 09/14/24 13:49 Pulse Ox 98 09/14/24 13:49 Oxygen Delivery Method Room Air 09/14/24 13:49 BMI result Body Mass Index 21.7 Tobacco/Smoking Status: Tobacco use Status Tobacco use date assessed 09/14/24 09/14/24 13:49 Patient Tobacco Use Status Former Tobacco user 09/14/24 13:49 e-Cigarette/Vaping Use Never Used 09/14/24 13:49 Thrive Assessment: Date of Thrive Assessment Date Thrive assessed 08/24/24 09/14/24 13:49 Currently or been in a relationship where the following occur: No concerns reported Const Orientation/consciousness: patient oriented x3 HENMT Ears: hearing grossly normal bilaterally Neck Thyroid: Thyroid normal Lymphatic: no lymphadenopathy noted Resp Auscultation: clear to auscultation bilaterally Cardio Rate: regular rate Rhythm: regular rhythm Heart sounds: S1 normal heart sound present and S2 normal heart sound present GI Inspection: Yes normal to inspection Palpation (GI): Soft to palpation and Other GI palpation findings present (nontender, no cva tenderness) Auscultation: normoactive bowel sounds Rectal Exam - Female: deferred General: Yes no CVA tenderness Back/Spine/Pelvis Back: no CVA tenderness Skin General skin exam: no rashes or lesions noted Neuro General: patient oriented x3, gait normal and no focal motor deficits Results AMB Urinalysis Dipstick UR Leukocytes Negative Last Edit by Norma Tom CMA on 09/14/24 15:49 UR Nitrite Negative Last Edit by Norma Tom CMA on 09/14/24 15:49 UR Urobilinogen Last Edit by Norma Tom CMA on 09/14/24 15:49 UR Protein Negative Last Edit by Norma Tom CMA on 09/14/24 15:49 UR Ph 6.0 Last Edit by Norma Tom CMA on 09/14/24 15:49 UR Blood Moderate Last Edit by Norma Tom CMA on 09/14/24 15:49 UR Specific [place] 1.010 Last Edit by Norma Tom CMA on 09/14/24 15:49 UR Ketone Negative Last Edit by Norma Tom CMA on 09/14/24 15:49 UR Bilirubin Negative Last Edit by Norma Tom CMA on 09/14/24 15:49 UR Glucose Negative Last Edit by Norma Tom CMA on 09/14/24 15:49 Results Reviewed Results Reviewed: Laboratory Last Values Urine pH (Clinic) 6.0 09/14/24 15:46 Specific [place] (Clinic) 1.010 09/14/24 15:46 Ur Protein (Clinic) Negative 09/14/24 15:46 Ur Ketones (Clinic) Negative 09/14/24 15:46 Urine Blood (Clinic) Moderate 09/14/24 15:46 Urine Nitrite Negative 09/14/24 15:46 Urine Bilirubin (Clinic) Negative 09/14/24 15:46 Leukocyte Esterase (Clinic) Negative 09/14/24 15:46 Urine Glucose (Clinic) Negative 09/14/24 15:46 Coding Level of Care Code Est Pt Level 4 (95461) Complex EM visit Add On G2211 Diagnoses Dysuria R30.0 Primary hypertension I10 Hypertension type: primary hypertension Thrombocytopenia D69.6 Assessment & Plan Assessment & Plan (1) Dysuria: Code(s): R30.0 - Dysuria Category: Medical Plan: Urine culture ordered. We will treat with Macrobid. Discussed risks and benefits and adverse effects of this medication. She will contact me if anything worsens or changes or go to the ER if she develops any flank pain, fever, abdominal pain. (2) HTN (hypertension): Code(s): I10 - Essential (primary) hypertension Category: Medical Qualifiers: Hypertension type: primary hypertension Qualified Code(s): I10 - Essential (primary) hypertension Plan: Continue current regimen (3) Thrombocytopenia: Code(s): D69.6 - Thrombocytopenia, unspecified Category: Medical Plan: Advised to complete labs today. Plan We will follow up pending test results. Orders: Orders AMB Urinalysis Dipstick 09/14/24 R30.9 - Painful micturition, unspecified Urine Culture 09/14/24 R30.0 - Dysuria Medications: New nitrofurantoin monohyd/m-cryst 100 mg (Macrobid) must administer with a meal/food 100 mg PO Q12H 7 days 14 caps 0RF
[2024-09-14 13:49] VITALS: BP 110/58; PULSE 60; RESP 12; TEMP 37; O2SAT 98; BMI 21.7
--- OUTSIDE RECORDS SUMMARY | 2024-09-14 16:07 | XMS_ITS | Clinical Summary ---
Author Organization [facility] Facility Address [address] [place] [address] Care Team Providers Care Biscuitware Brusher Name Role Phone Susan Campos PA-C Primary [...] patient's age to complete this topic Insurance [facility] Care Teams Biscuitware Brusher Relationship Specialty Start Date End Date Susan Campos PA-C PCP - General Physician Administrative Supervisor 07/17/22
--- OUTSIDE RECORDS SUMMARY | 2024-09-14 16:07 | XMS_ITS | Clinical Summary ---
Author Organization [facility] Address [address] [place] [address] Care Team Providers Care Mold Filler Name Role Phone Darleen Dinh PA-C Primary [...] age to complete this topic Care Teams Mold Filler Relationship Specialty Start Date End Date Darleen Dinh PA-C [address] [place] [address] [phone] PCP - General Medical Services 03/19/21
== END 2024-09-14 14:24 | disposition home or self-care (01) ==
LOC: HO.HMCFM 13:33
PROVIDERS: PCP Physician Assistant; Visit Provider Physician Assistant
DX: R30.0 Dysuria (principal); I10 Essential (primary) hypertension; D69.6 Thrombocytopenia, unspecified

== ENCOUNTER 2024-09-14 13:32 | Outpatient (REF) | payer BC, SELFPAY ==
[2024-09-14 18:08] LABS: MANUAL DIFF FLAG NO
[2024-09-14 18:28] LABS: Basophils Percent Auto 0.7 % (0-2); Eosinophils Absolute Auto 0.1 X10*3/uL (0.0-0.4); Hematocrit 39.2 % (37.0-47.0); Hemoglobin 13.5 g/dl (12.0-16.0); Imm Gran Abs Auto 0.01 X10*3/uL (0.00-0.03); Imm Gran Pct Auto 0.2 % (0.0-0.4); Lymphocytes Absolute Auto 0.9 X10*3/uL (1.2-4.9); Lymphocytes Percent Auto 19.6 % (20-40); Mean Corpuscular HGB Conc 34.4 g/dl (31.0-35.0); Mean Corpuscular Hemoglobin 32.2 pg (27.0-33.0); Mean Corpuscular Volume 93.6 fL (80.0-98.0); Mean Platelet Volume 12.5 fL (9.4-12.3); Monocytes Absolute Auto 0.4 X10*3/uL (0.1-1.2); Monocytes Percent Auto 8.5 % (2-11); Neutrophils Absolute Auto 3.1 x10*3/uL (2.0-8.3); Red Blood Count 4.19 X10*6/uL (4.20-5.50); Red Cell Distribution Width 12.8 % (11.0-16.0); White Blood Count 4.5 X10*3/uL (4.8-10.8)
[2024-09-14 18:42] LABS: Alanine Aminotransferase 27 U/L (0-31); Albumin Level 4.1 g/dL (3.5-5.0); Alkaline Phosphatase 82 U/L (39-117); Anion Gap 11 (12-20); Aspartate Amino Transferase 31 U/L (5-31); Bilirubin Total 0.7 mg/dL (0.0-1.0); Blood Urea Nitrogen 11 mg/dL (9-16); Calcium 8.9 mg/dL (8.4-10.2); Carbon Dioxide 26 mmol/L (22-29); Chloride 107 mmol/L (96-108); Estimated Glomerular Filt Rate > 60; Glucose Fasting 83 mg/dL (60-99); Potassium 3.8 mmol/L (3.3-5.1); Sodium 140 mmol/L (135-145); Total Protein 6.7 g/dL (6.5-8.0)
[2024-09-14 18:44] LABS: Creatinine Urine 31.02 mg/dL; Microalbum/Creatinine Ratio Ur 32.2 ug/mg cr (<30)
[2024-09-14 18:53] LABS: Platelet Count 71 X10*3/uL (160-400)
[2024-09-14 19:07] LABS: TSH reflex Free T4 1.82 uIU/mL (0.32-4.0)
== END 2024-09-14 13:33 | disposition home or self-care (01) ==
LOC: HO.WFDLDS 13:32
PROVIDERS: PCP Physician Assistant; Visit Provider Physician Assistant
DX: R91.8 Other nonspecific abnormal finding of lung field (principal); Z09 Encounter for follow-up examination after completed treatment for conditions other than malignant neoplasm; G47.00 Insomnia, unspecified; K70.30 Alcoholic cirrhosis of liver without ascites; I10 Essential (primary) hypertension; D69.6 Thrombocytopenia, unspecified; R30.0 Dysuria
CPT/HCPCS: 36415; 80053; 81002; 82043; 82570; 84443; 85025; 87086

== ENCOUNTER 2024-10-12 08:22 | Outpatient (AMB) | payer BC, SELFPAY ==
--- NOTE | 2024-10-12 08:36 | A.OFFPC_ITS ---
Vital Signs 10/12/24 08:41 Height 5 ft 6.34 in Weight 135 lb BMI 21.6 BP 120/74 Blood Pressure Location Rt brachial Position Sitting Respiration 14 Pulse 71 Pulse Source Pulse Oximeter Pulse Oximetry (%) 98 Oxygen Delivery Method Room Air Intake Visit Reasons: bp Intake Note: Follow up Bobbin Fixer Required: No Allergies No Known Allergies Allergy (Verified 10/12/24 08:39) Tobacco use date assessed: 10/12/24 Fall risk assessment: 2 + Falls in past year (Tripped and fell over the winter, no injuries) Last assessed Fall Risk: 10/12/24 Dental Screening Dental Screen Date: 01/13/24 HPI bp HPI Details Patient is a 64-year-old female with a significant past medical history of cirrhosis, thrombocytopenia, hypertension and lung nodules presenting today for a blood pressure follow up CV: Blood pressure is 120/74.. She is currently on spironolactone 25 mg daily and losartan 25 mg daily. Psych: Has not started that hydroxyzine yet but did just picked this up to see if that will help with sleep. GI: Cirrhosis is stable. Following with [facility] and booked in the fall 2024. Heme: CBC is stable. Was previously evaluated at [facility] and told to return if anything worsens Pulm: Has a history of lung nodules that need follow up. CT was ordered at last appointment and is scheduled for 10/19/2024. She remains asymptomatic. Vasc: has seen vascular surgeon for the leg cramps and varicose veins and compression stocking has improved symptoms. MSK: She states that she has left elbow pain whenever she goes to do certain activities like raking. This has been longstanding and progressive. She would like to see an bioinformatics support specialist. No numbness, tingling or weakness. For the last couple years but more recently she has been getting right hip pain and stiffness. Sometimes a left hip is bothers him as well but mostly in the right. She states her right knee also feels weak and unstable going downstairs at times. She goes slower. She has given up working at [employer] to see if that would alleviate some of her aches and pains but she has not noticed a significant improvement. Mammo: UTD 02/2025 Physical Therapy Manager: UTD at [facility] 2024 Bone Density: osteopenia Colonoscopy: Double endoscopy was 12/16/2022 [facility] Medical History Cirrhosis HTN (hypertension) Personal history of nicotine dependence Thrombocytopenia Tubular adenoma of colon Hypokalemia Anxiety Surgical History History of foot surgery History of nasal septoplasty History of esophagogastroduodenoscopy (EGD) History of colonoscopy Family History Mother Diabetes mellitus Father Dementia HTN (hypertension) Maternal Grandmother Diabetes mellitus Paternal Grandmother History of breast cancer Social History (Updated 10/12/24 @ 09:10 by Norma Tom CMA) Housing: House Alcohol intake: never Patient Tobacco Use Status: Former Tobacco user Years Smoked: (onset 17yo, 1/2ppd x 45yrs, 22pyh - quit 02/2022) e-Cigarette/Vaping Use: Currently Using Second Hand Smoke Exposure: No Use of substances other than those prescribed or required for medical reasons: No service: No Current occupational status: retired Cognitive needs: No Hearing needs: No Vision needs: No Questionnaire Thrive Questionnaire Date Thrive assessed: 08/24/24 I am a: Patient What is your living situation today?: I have a steady place to live Within the past 12 months, did the food you bought not last and you didn't have the money to get more?: Never true Within the past 12 months, did you worry whether your food would run out before you got money to buy more?: Never true Do you have trouble paying for medicines?: No Do you have trouble getting transportation to medical appointments?: No Do you have trouble paying your heating and electricity bill?: No Do you have trouble taking care of your child, family member or friend?: No Do you have trouble with day-to-day activities such as bathing, preparing meals, shopping, managing finances, etc.?: No Are you currently unemployed and looking for a job?: No Are you interested in more education?: No Please select the resources that you would like help with: None Currently or been in a relationship where the following occur: No concerns reported THRIVE Score: 0 AUDIT C Alcohol Use Questionnaire (AUDIT-C) 3. How often do you have six or more drinks on one occasion?: Never Total Score: 0 CONI-7 AMB Questionnaire CONI-7 Date CONI - 7 assessed: 08/31/24 Source: Developed by Drs. Roscoe Fam, Amanda Hook, Miguel A Rangel and colleagues, with an educational estee from [employer]. Physical exam (Primary Care) Vital Signs: Last Vital Signs Pulse 71 10/12/24 08:41 Resp 14 10/12/24 08:41 BP 120/74 10/12/24 08:41 Pulse Ox 98 10/12/24 08:41 Oxygen Delivery Method Room Air 10/12/24 08:41 BMI result Body Mass Index 21.6 Tobacco/Smoking Status: Tobacco use Status Tobacco use date assessed 10/12/24 10/12/24 08:43 Patient Tobacco Use Status Former Tobacco user 10/12/24 08:38 e-Cigarette/Vaping Use Currently Using 10/12/24 08:43 Thrive Assessment: Date of Thrive Assessment Date Thrive assessed 08/24/24 10/12/24 08:38 Currently or been in a relationship where the following occur: No concerns reported Const Orientation/consciousness: patient oriented x3 HENMT Ears: hearing grossly normal bilaterally Neck Thyroid: Thyroid normal Lymphatic: no lymphadenopathy noted Resp Auscultation: clear to auscultation bilaterally Cardio Rate: regular rate Rhythm: regular rhythm Heart sounds: S1 normal heart sound present and S2 normal heart sound present GI Inspection: Yes normal to inspection Palpation (GI): Soft to palpation and Other GI palpation findings present (nontender, no cva tenderness) Auscultation: normoactive bowel sounds Rectal Exam - Female: deferred Skin General skin exam: no rashes or lesions noted Neuro General: patient oriented x3, gait normal and no focal motor deficits Results Reviewed Results Reviewed: Laboratory Tests 09/14/24 14:38 WBC 4.5 L RBC 4.19 L Hgb 13.5 Hct 39.2 Plt Count 71 L Sodium 140 Potassium 3.8 Chloride 107 Carbon Dioxide 26 Anion Gap 11 L BUN 11 Creatinine 0.61 Estimated GFR > 60 Fasting Glucose 83 Calcium 8.9 AST 31 ALT 27 Alkaline Phosphatase 82 Total Protein 6.7 Albumin 4.1 TSH 1.82 Coding Level of Care Code Est Pt Level 4 (45805) Complex EM visit Add On G2211 Diagnoses Alcoholic cirrhosis of liver without ascites K70.30 Ascites presence: without ascites Hepatic cirrhosis type: alcoholic cirrhosis Thrombocytopenia D69.6 Primary hypertension I10 Hypertension type: primary hypertension Leg cramps R25.2 Bilateral hip pain M25.551; M25.552 Left elbow pain M25.522 Unstable right knee M25.361 Assessment & Plan Assessment & Plan (1) Cirrhosis: Code(s): K74.60 - Unspecified cirrhosis of liver Category: Medical Qualifiers: Ascites presence: without ascites Hepatic cirrhosis type: alcoholic cirrhosis Qualified Code(s): K70.30 - Alcoholic cirrhosis of liver without ascites Plan: Stable. Following with GI (2) Thrombocytopenia: Code(s): D69.6 - Thrombocytopenia, unspecified Category: Medical Plan: Stable. secondary to cirrhosis. (3) HTN (hypertension): Code(s): I10 - Essential (primary) hypertension Category: Medical Qualifiers: Hypertension type: primary hypertension Qualified Code(s): I10 - Essential (primary) hypertension Plan: WNL. Continue current regimen (4) Leg cramps: Code(s): R25.2 - Cramp and spasm Category: Medical Plan: Improved (5) Bilateral hip pain: Code(s): M25.551 - Pain in right hip; M25.552 - Pain in left hip Category: Medical Plan: X-rays ordered. Referral to ortho. (6) Left elbow pain: Code(s): M25.522 - Pain in left elbow Category: Medical Plan: As above (7) Unstable right knee: Code(s): M25.361 - Other instability, right knee Category: Medical Plan: As above Orders: Orders XR wrist LT min 3V Today M25.361 - Other instability, right knee, M25.522 - Pain in left elbow, M25.551 - Pain in right hip, M25.552 - Pain in left hip XR knee RT 2V Today M25.361 - Other instability, right knee, M25.522 - Pain in left elbow, M25.551 - Pain in right hip, M25.552 - Pain in left hip, M25.561 - Pain in right knee, M25.562 - Pain in left knee XR hips ARON min 3V Today M25.361 - Other instability, right knee, M25.522 - Pain in left elbow, M25.551 - Pain in right hip, M25.552 - Pain in left hip Referrals Orthopedics Referral M25.361 - Other instability, right knee, M25.522 - Pain in left elbow, M25.551 - Pain in right hip, M25.552 - Pain in left hip
[2024-10-12 08:41] VITALS: BP 120/74; PULSE 71; RESP 14; O2SAT 98; BMI 21.6
--- OUTSIDE RECORDS SUMMARY | 2024-10-12 08:41 | XMS_ITS | Clinical Summary ---
Author Organization [facility] Facility Address [address] [place] [address] Care Team Providers Care Live Hanger Name Role Phone Susan Campos PA-C Primary [...] Comments Breast Cancer Screening 1960 Pneumococcal Vaccine: 50+ Ye ars (1 of 2 - PCV) 01/03/1979 Colorectal Cancer Screening: Annual FOBT 01/03/2009 Colorectal Cancer Screening: Colonoscopy 01/03/2009 Colorectal Cancer Screening: Sigmoidoscopy 01/03/2009 Influenza Vaccine (Season Ended) 2025 Hepatitis B Vaccine Aged Out No longe r eligible based on patient's age to complete this topic Insurance [facility] [place] [facility] Care Teams Live Hanger Relationship Specialty Start Date End Date Susan Campos PA-C PCP - General Physician Traffic Control Specialist 07/17/22
--- OUTSIDE RECORDS SUMMARY | 2024-10-12 08:41 | XMS_ITS | Clinical Summary ---
Author Organization [facility] Address [address] [place] [address] Care Team Providers Care Firmware Architect Name Role Phone Darleen Dinh PA-C Primary [...] age to complete this topic Care Teams Firmware Architect Relationship Specialty Start Date End Date Darleen Dinh PA-C [address] [place] [address] [phone] PCP - General Medical Services 03/19/21
== END 2024-10-12 09:03 | disposition home or self-care (01) ==
LOC: HO.HMCFM 08:23
PROVIDERS: PCP Physician Assistant; Visit Provider Physician Assistant
DX: K70.30 Alcoholic cirrhosis of liver without ascites (principal); D69.6 Thrombocytopenia, unspecified; I10 Essential (primary) hypertension; R25.2 Cramp and spasm; M25.551 Pain in right hip; M25.552 Pain in left hip; M25.522 Pain in left elbow; M25.361 Other instability, right knee

== ENCOUNTER → 2024-10-12 08:22 | Outpatient (BNVA) | payer BC, SELFPAY | PROVIDERS: PCP Physician Assistant; Visit Provider Physician Assistant ==

== ENCOUNTER 2024-10-19 07:25 | Outpatient (REF) | payer BC, SELFPAY ==
--- NOTE | ~2024-10-19 | CT_ITS ---
CLINICAL HISTORY: LUNG RADS 4 --- Additional Notes or Special Instructions: 3 month repeat LDCT from 03 11 24 LDCT lung RADS 4 CT lung cancer screening (LDCT) Comparison: 03/11/2024 Technique: Axial CT images of the chest using low-dose technique. Referring provider counseled the patient on shared decision-making for LDCT screening. Additional counseling was provided on smoking cessation. Effective radiation dose total: DLP 31 mGycm, CTDIvol 0.9 mGy. Findings: Lung: Mild emphysema. Stable scarring of the bilateral upper lobes. Stable 5.4 x 12 mm nodular density of the right upper lobe medially series 4, image 32. Stable 5 mm nodule of the right upper lobe image 40. Stable 5.9 mm subpleural nodule of the right lower lobe image 47. Stable additional micro nodules. Calcified granulomas. Coronary artery calcifications: Mild Limited upper abdomen: Unremarkable Other: none Impression: LungRADS 3 - Probably benign: Recommend low dose screening Chest CT in 6 months. ##L3# Category 1: Normal; continue annual screening Category 2: Benign appearance or behavior, continue annual screening Category 3: Probably benign, [address] recommended Category 4A: Suspicious, [address] recommended; may consider PET/CT Category 4B: Suspicious, Additional diagnostics and/or tissue sampling recommended Category 4X: Suspicious, Additional diagnostics and/or tissue sampling recommended Category 0: Recalls (incomplete screen due to Incomplete coverage, Noise, Respiratory motion, Expiration, Obscured by acute abnormality) This document has been electronically signed by: Hector Graham MD on 10/19/2024 22:04:06
--- OUTSIDE RECORDS SUMMARY | 2024-10-19 07:28 | XMS_ITS | Clinical Summary ---
Author Organization [facility] Address [address] [place] [address] Care Team Providers Care Container Shop Welder Name Role Phone Darleen Dinh PA-C Primary [...] age to complete this topic Care Teams Container Shop Welder Relationship Specialty Start Date End Date Darleen Dinh PA-C [address] [place] [address] [phone] PCP - General Medical Services 03/19/21
== END 2024-10-19 07:26 | disposition home or self-care (01) ==
LOC: HO.CT 07:25
PROVIDERS: PCP Physician Assistant; Visit Provider Physician Assistant Medical
DX: Z12.2 Encounter for screening for malignant neoplasm of respiratory organs (principal); Z87.891 Personal history of nicotine dependence
CPT/HCPCS: 71250

== ENCOUNTER → 2024-10-19 07:28 | Outpatient (BNV) | payer BC, SELFPAY | PROVIDERS: PCP Physician Assistant; Visit Provider Nuclear Medicine | DX: R91.8 Other nonspecific abnormal finding of lung field (principal) | CPT/HCPCS: 71250 ==

== ENCOUNTER 2024-11-24 07:43 | Outpatient (REF) | payer BC, SELFPAY ==
--- OUTSIDE RECORDS SUMMARY | 2024-11-24 07:44 | XMS_ITS | Clinical Summary ---
Author Organization [facility] Facility Address [address] [place] [address] Care Team Providers Care Vending Machine Filler Name Role Phone Susan Campos PA-C Primary [...] patient's age to complete this topic Insurance [facility] [place] [facility] Care Teams Vending Machine Filler Relationship Specialty Start Date End Date Susan Campos PA-C PCP - General Physician Bed Laborer 07/17/22
--- NOTE | 2024-11-24 07:46 | PFT_ITS ---
Flows: FEV1: 94 % of predicted at 2.36 L FVC: 101 % of predicted at 3.26 L FEV1/FVC: 72 % Bronchodilator response: Present Volumes: Total lung capacity: 105 % of predicted at 5.68 L Residual volume: 128 % of predicted at 2.52 L Slow vital capacity: 92 % of predicted at 3.16 L Expiratory reserve volume: 152 % of predicted at 1.29 L Diffusion capacity: Normal Impression: Mild reversible obstructive ventilatory defect with positive bronchodilator response. Increased residual volume suggests air trapping. MTDD
[2024-11-24 08:24] VITALS: PULSE 59; O2SAT 99
== END 2024-11-24 07:44 | disposition home or self-care (01) ==
LOC: HO.RESP 07:43
PROVIDERS: PCP Physician Assistant; Visit Provider Physician Assistant Medical
DX: R91.8 Other nonspecific abnormal finding of lung field (principal); Z87.891 Personal history of nicotine dependence
CPT/HCPCS: 94010; 94640; 94727; 94729

== ENCOUNTER → 2024-11-24 07:46 | Outpatient (BNV) | payer BC, SELFPAY | PROVIDERS: PCP Physician Assistant; Visit Provider Internal Medicine Pulmonary Disease | DX: R91.1 Solitary pulmonary nodule (principal) | CPT/HCPCS: 94060; 94727; 94729 ==

== ENCOUNTER 2024-12-05 11:20 | Outpatient (AMB) | payer BC, SELFPAY ==
[2024-12-05 11:23] VITALS: BMI 21.6
--- NOTE | 2024-12-05 11:23 | A.OFFVIS_ITS ---
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 Patient complains on painful range of motion for both the left elbow and right shoulder that stared 3 months ago, no known injury. Patient states she is not taking anything for pain at this time. Deneis previous surgeries to the left elbow or right shoulder. Patient believe her elbow pain is related to repetitive motions. Allergies No Known Allergies Allergy (Verified 12/05/24 11:24) HPI HPI CLINICAL IMMUNOLOGIST, Left elbow, denies injury: Details: Heaven is a 64 year old right hand dominant female who presents today for a new patient visit for evaluation of left elbow pain and right shoulder pain. Patient complains on painful range of motion for both the left elbow and right shoulder that stared 3 months ago, no known injury. Patient states she is not taking anything for pain at this time. Deneis previous surgeries to the left elbow or right shoulder. Patient believe her elbow pain is related to repetitive motions. Patient reports that the pain in her left elbow is primarily along the lateral aspect, and worsens with activities. Patient reports minimal discomfort at rest. Denies numbness or tingling in the left upper extremity. No other acute complaints or concerns at this time. [facility] Medical History (Updated 12/05/24 @ 16:49 by JAGUAR Oliver) Cirrhosis HTN (hypertension) Personal history of nicotine dependence Thrombocytopenia Tubular adenoma of colon Hypokalemia Anxiety Surgical History History of foot surgery History of nasal septoplasty History of esophagogastroduodenoscopy (EGD) History of colonoscopy Family History Mother Diabetes mellitus Father Dementia HTN (hypertension) Maternal Grandmother Diabetes mellitus Paternal Grandmother History of breast cancer Social History (Updated 12/05/24 @ 11:28 by OMAR Peraza) Housing: House Alcohol intake: never Patient Tobacco Use Status: Former Tobacco user Years Smoked: (onset 17yo, 1/2ppd x 45yrs, 22pyh - quit 02/2022) e-Cigarette/Vaping Use: Currently Using Second Hand Smoke Exposure: No service: No Current occupational status: retired Current occupation: rt handed Cognitive needs: No Hearing needs: No Vision needs: No Review of Systems Const All systems reviewed & are unremarkable except as noted in HPI and below Physical Exam Vital Signs: BMI result Body Mass Index 21.6 Extrem Other: Patient's left elbow normal to inspection No erythema, ecchymosis, edema noted No lacerations, abrasions, open areas No evidence of infection Patient reports tenderness to palpation of the lateral epicondyle of the left elbow No tenderness to palpation of the medial epicondyle, olecranon process, radial head, or elsewhere on the left elbow Patient is able to flex and extend the left elbow fully and without difficulty Positive Cozen's test in the left Distal sensation intact Capillary refill brisk Assessment & Plan Assessment & Plan (1) Left lateral epicondylitis: Code(s): M77.12 - Lateral epicondylitis, left elbow Category: Medical Plan 1. Left lateral epicondylitis Patient is educated about this condition Patient is educated about the treatment options available Patient would like to proceed with steroid injection at this time The risks and benefits of a steroid injection including but not limited to risk of damage to blood vessels, nerves, tendons, infection, skin bleaching, failure to improve symptoms, increased pain, and possible need for further injections or other intervention were discussed with the patient and the patient wishes to proceed with the steroid injection. Once consent was obtained, I sterilely prepped the area over the lateral epicondyle of the left elbow. I then injected the area over the lateral epicondyle with a combination of 40 mg of dexamethasone and 1 mL of 1% lidocaine. The patient tolerated the procedure well with no complications. If the patient continues to experience symptoms over the next 4 weeks, they can make an appointment to return and discuss alternative treatment measures, such as physical therapy. Follow-up prn Coding Level of Care Code New Pt Level 3 (90136) Diagnoses Left lateral epicondylitis M77.12
--- OUTSIDE RECORDS SUMMARY | 2024-12-05 12:55 | XMS_ITS | Clinical Summary ---
Author Organization [facility] Facility Address [address] [place] [address] Care Team Providers Care Mandrel Cleaner Name Role Phone Susan Campos PA-C Primary [...] patient's age to complete this topic Insurance [facility] Care Teams Mandrel Cleaner Relationship Specialty Start Date End Date Susan Campos PA-C PCP - General Physician Buffer Inflated Pad 07/17/22
== END 2024-12-05 12:21 | disposition home or self-care (01) ==
LOC: HO.HOS 11:21
PROVIDERS: PCP Physician Assistant
DX: M77.12 Lateral epicondylitis, left elbow (principal)
CPT/HCPCS: 20605; 99203

== ENCOUNTER → 2024-12-05 11:20 | Outpatient (BNVA) | payer BC, SELFPAY | PROVIDERS: PCP Physician Assistant | DX: M77.12 Lateral epicondylitis, left elbow (principal) | CPT/HCPCS: 20605; J1100; J2003 ==

== ENCOUNTER 2025-01-03 09:55 | Outpatient (AMB) | payer MEDICARE, SELFPAY ==
--- NOTE | 2025-01-03 10:19 | MHC.OFFWIV ---
Intake Vital Signs 01/03/25 10:21 Height 5 ft 6 in Weight 135 lb BMI 21.8 BP 116/58 L Blood Pressure Location Lt brachial Pulse 70 Pulse Source Pulse Oximeter Temp 97.8 F Temp Source Oral Pulse Oximetry (%) 99 Oxygen Delivery Method Room Air Intake Visit Reasons: EP-swollen neck from a bite Intake Note: presents with redness, swelling, itching and burning after bug bite yesterday. states h/o cellulitis Patient Tobacco Use Status: Former Tobacco user Allergies No Known Allergies Allergy (Verified 01/03/25 10:24) Do you need a note to return to daycare/school/sports/work: No HPI HPI Comments History of Present Illness Details She presents with skin redness/swelling post bite She was bit by a wasp yesterday; approx 24 hours ago Bit under L side of chin She denies hx of anaphylaxis from bees or bites Hx of cellulitis in the past She took Benadryl yesterday + swelling/redness L side of neck with itching No difficulry swallowing or tongue edema No fever or chills No CP or SOB PFSH Medical History (Updated 01/03/25 @ 10:46 by Mihaela Toscano PA-C) Cirrhosis HTN (hypertension) Personal history of nicotine dependence Thrombocytopenia Tubular adenoma of colon Hypokalemia Anxiety Surgical History History of foot surgery History of nasal septoplasty History of esophagogastroduodenoscopy (EGD) History of colonoscopy Family History Mother Diabetes mellitus Father Dementia HTN (hypertension) Maternal Grandmother Diabetes mellitus Paternal Grandmother History of breast cancer Social History (Updated 12/05/24 @ 11:28 by OMAR Peraza) Housing: House Alcohol intake: never Patient Tobacco Use Status: Former Tobacco user Years Smoked: (onset 17yo, 1/2ppd x 45yrs, 22pyh - quit 02/2022) e-Cigarette/Vaping Use: Currently Using Second Hand Smoke Exposure: No service: No Current occupational status: retired Current occupation: rt handed Cognitive needs: No Hearing needs: No Vision needs: No Review of Systems Const Denies chills, Denies fatigue and Denies fever(s) Eyes Denies change in vision ENT Denies otalgia, Denies nose pain, Denies sore throat, Denies throat swelling and Denies tongue swelling Card Denies chest pain and Denies dyspnea Resp Denies cough and Denies dyspnea Skin/Breast Reports pruritus, Reports erythema and Reports skin swelling Endo Denies fatigue Aller/Immun Denies throat swelling and Denies tongue swelling Physical Exam Vital Signs: Last Vital Signs Temp 97.8 F 01/03/25 10:21 Pulse 70 01/03/25 10:21 BP 116/58 L 01/03/25 10:21 Pulse Ox 99 01/03/25 10:21 Oxygen Delivery Method Room Air 01/03/25 10:21 BMI result Body Mass Index 21.8 General: Non-toxic, NAD. Speaking full sentences. Skin: Warm dry throughout Small puncture noted to L mandible region with surrounding mass/bump approx 2cm x 3cm to area. + slight edema to L subandibular region and L side of neck. + notable erythema to area extending interiorly to anterior chest wall Eye: EOMI HENT: Airway patent. Uvula midline. No pharyngeal erythema or edema. No CHEMICAL PUMPER. No lip or tongue edema on exam Bilateral canals clear. TM non-erythematous, non-bulging. No TM perforation or hemotympanum noted. Respiratory: CTA bilaterally. No wheezes, rales or rhonchi Cardiac: RRR. No murmur MSK: Full ROM extremities. Neurology: Alert. No aphasia or facial droop. Gait without abnormality Psych: Good mood and affect Assessment & Plan Assessment & Plan (1) Bee sting: Code(s): T63.441A - Toxic effect of venom of bees, accidental (unintentional), initial encounter Qualifiers: Encounter type: initial encounter Injury intent: accidental or unintentional Qualified Code(s): T63.441A - Toxic effect of venom of bees, accidental (unintentional), initial encounter Plan: Patient seen and evaluated. She is non-toxic appearing and in no respiratory distress She has no tongue/lip edema on exam and is handling sections without ant airway involvement/symptoms Discussed head elevation at rest Prednisone with food (avoid alcohol and nsaids) DIscussed ER s/s in depth with pt such as lip/tongue or worsening facial edema, CP or SOB and she is aware Patient gave verbal understanding and had no additional questions or concerns at time of discharge All questions answered (2) Cellulitis: Code(s): L03.90 - Cellulitis, unspecified Qualifiers: Site of cellulitis: neck Qualified Code(s): L03.221 - Cellulitis of neck Plan: Erythema on exam may be secondary to allergic rsn but due to L side of neck/anterior neck, will cover with keflex Discussed antibiotic use with pt and all questions answered Medications: New cephalexin 500 mg PO BID 10 caps 0RF prednisone 40 mg (2 x 20 mg) PO DAILY 8 tabs 0RF Coding Level of Care Code Est Pt Level 3 (92762) Diagnoses Bee sting, accidental or unintentional, initial encounter T63.441A Encounter type: initial encounter Injury intent: accidental or unintentional Cellulitis of neck L03.221 Site of cellulitis: neck
[2025-01-03 10:21] VITALS: BP 116/58; PULSE 70; TEMP 36.6; O2SAT 99; BMI 21.8
--- OUTSIDE RECORDS SUMMARY | 2025-01-03 10:42 | XMS_ITS | Clinical Summary ---
Author Organization [facility] Facility Address [address] [place] [address] Care Team Providers Care Inbound Call Center Representative Name Role Phone Susan Campos PA-C Primary [...] Cancer Screening: Sigmoidoscopy 01/03/2009 Influenza Vaccine (#1) 2025 Hepatitis B Vaccine Aged Out No longe r eligible based on patient's age to complete this topic Insurance [facility] Care Teams Inbound Call Center Representative Relationship Specialty Start Date End Date Susan Campos PA-C PCP - General Physician High [employer] Combination Teacher 07/17/22
--- OUTSIDE RECORDS SUMMARY | 2025-01-03 10:43 | XMS_ITS | Clinical Summary ---
Author Organization [facility] Address [address] [place] [address] Care Team Providers Care Silviculture Forester Name Role Phone Darleen Dinh PA-C Primary [...] 92 04/17/2021 2:51 PM EDT Temperature 36.4 C (97.6 F) 04/17/2021 2:51 PM EDT Respiratory Rate - - Oxygen Saturation 100% [...] (1 of 2) 01/03/2010 Influenza Vaccine (#1) 2025 RSV Adult > 60+ Yrs or Pregn ant (1 - 1-dose 75+ series) 01/03/2035 Hepatitis B Vaccines Aged Out No long er eligible based on patient's age to complete this topic RSV Ped < 20 months Aged Out No longe r eligible based on patient's age to complete this topic Care Teams Silviculture Forester Relationship Specialty Start Date End Date Darleen Dinh PA-C [address] [place] [phone] PCP - General Medical Services 03/19/21
== END 2025-01-03 12:24 | disposition home or self-care (01) ==
PROVIDERS: PCP Physician Assistant; Visit Provider Physician Assistant
DX: T63.441A Toxic effect of venom of bees, accidental (unintentional), initial encounter (principal); L03.221 Cellulitis of neck

== ENCOUNTER → 2025-01-03 09:55 | Outpatient (BNVA) | payer MEDICARE, SELFPAY | PROVIDERS: PCP Physician Assistant; Visit Provider Physician Assistant | DX: T63.441A Toxic effect of venom of bees, accidental (unintentional), initial encounter (principal); L03.221 Cellulitis of neck | CPT/HCPCS: 99212 ==

== ENCOUNTER 2025-01-23 16:50 | Outpatient (REF) | payer MEDICARE, SELFPAY ==
--- OUTSIDE RECORDS SUMMARY | 2025-01-23 14:38 | XMS_ITS | Clinical Summary ---
Author Organization [facility] Address [address] [place] [address] Care Team Providers Care Field Handyman Name Role Phone Darleen Dinh PA-C Primary [...] 01/03/2010 Shingrix-Zoster Vaccine (1 of 2) 01/03/2010 Fall Risk Assessment 01/03/2025 Osteoporosis Screening (DEXA Scan) 01/03/2025 Influenza Vaccine (#1) 2025 RSV Adult > 60+ Yrs or Pregn ant (1 - 1-dose 75+ series) 01/03/2035 Hepatitis B Vaccines Aged Out No long er eligible based on patient's age to complete this topic RSV Ped < 20 months Aged Out No longe r eligible based on patient's age to complete this topic Care Teams Field Handyman Relationship Specialty Start Date End Date Darleen Dinh PA-C [address] [place] [phone] PCP - General Medical Services 03/19/21
--- OUTSIDE RECORDS SUMMARY | 2025-01-23 14:38 | XMS_ITS | Clinical Summary ---
Author Organization [facility] Address [address] [place] [phone] Phone Care Team Providers Care Perch Mender Name Role Phone Pcp, Unknown Primary Care Provider Unavailabl e Allergies No known active allergies Medications No known medications Active Problems No known active problems Social History Tobacco Use Types Packs/Day Years Used Date Smoking Tobacco: Never Assessed Education Answer Date Recorded Are you interested in more education? Not on cindi e 10/17/2022 Are you concerned about learning? Not on file 10/17/2022 No 10/17/2022 No 10/17/2022 Digital Access Answer Date Recorded No 11/15/2022 No 11/15/2022 Reliable internet access at home? Not on file 11/15/2022 Device with a working camera? Not on file Comments Unknown Sex and Gender Information Value Date Recorded Sex Assigned at Not on file Legal Sex Female 9:48 PM EDT Gender Identity Not on file Sexual Orientation Not on file Last Filed Vital Signs Vital Sign Reading Time Taken Comments Blood Pressure 104/61 05/08/2021 9:38 PM EST Pulse 92 05/08/2021 9:38 PM EST Temperature 37.8 C (100 F) 05/08/2021 9:38 PM EST Respiratory Rate 18 05/08/2021 9:38 PM EST Oxygen Saturation 96% 05/08/2021 9:38 PM EST Inhaled Oxygen Concentration - - Weight 63.5 kg (140 lb) 05/08/2021 3:37 PM EST Height 172.7 cm (5' 8 ) 05/08/2021 3:37 PM EST Body Mass Index 21.29 05/08/2021 3:37 PM EST Plan of Treatment Health Maintenance Due Date Last Done Comments LIPID PANEL 1960 DEPRESSION SCREENING 1972 SMOKING Hx and SMOKELESS TOBACCO SCREENING 01/03/1973 HEPATITIS C SCREENING 01/03/1978 HIV ONE-TIME SCREENING (18-6 5 YEARS) 01/03/1978 MAMMOGRAM 2000 COLOGUARD 01/03/2005 COLONOSCOPY 01/03/2005 COLORECTAL CANCER SCREENING 01/03/2005 FIT TEST 01/03/2005 FOBT 01/03/2005 SIGMOIDOSCOPY 01/03/2005 VIRTUAL COLONOSCOPY 01/03/2005 PNEUMOCOCCAL VACCINES (50+ years) (1 of 1 - PCV) 01/03/2010 ZOSTER VACCINES (1 of 2) 01/03/2010 COVID-19 VACCINE (3 2023-2 5 season) 2024 07/24/2020, 06/26/2020 OSTEOPOROSIS SCREENING INITI AL (ONE-TIME) 01/03/2025 Adult Td,Tdap Booster 10/04/2031 10/03/2021 RSV VACCINE (1 - 1-dose 75+ series) 01/03/2035 HEPATITIS A VACCINES Aged Out No long er eligible based on patient's age to complete this topic HIB VACCINES Aged Out No longer eligi ble based on patient's age to complete this topic MENINGOCOCCAL VACCINES (ACWY) Aged Out No longer eligible based on patient's age to complete this topic MENINGOCOCCAL VACCINES (B) Aged Out N o longer eligible based on patient's age to complete this topic Medical Devices Not on file [place] [address] [place] [address] [place] [address] Care Teams Perch Mender Relationship Specialty Start Date End Date Pcp, Unknown PCP - General 05/08/21 Additional Source Comments The information contained in this document represents components of the legal health record. It is not the complete legal health record.[facility]
--- OUTSIDE RECORDS SUMMARY | 2025-01-23 14:38 | XMS_ITS | Clinical Summary ---
Author Organization [facility] Facility Address [address] [place] [address] Care Team Providers Care Kennel Operator Name Role Phone Susan Campos PA-C Primary [...] patient's age to complete this topic Insurance [facility] Care Teams Kennel Operator Relationship Specialty Start Date End Date Susan Campos PA-C PCP - General Physician Horticulturalist 07/17/22
== END 2025-01-23 16:51 | disposition home or self-care (01) ==
LOC: HO.HOSX 16:50
DX: Z13.89 Encounter for screening for other disorder (principal)

== ENCOUNTER 2025-03-15 08:32 | Outpatient (AMB) | payer MEDICARE, SELFPAY ==
[2025-03-15 08:42] VITALS: BP 116/72; PULSE 77; RESP 14; TEMP 37; O2SAT 98; BMI 21.2
--- NOTE | 2025-03-15 08:42 | A.OFFPC_ITS ---
Vital Signs 03/15/25 08:42 Height 5 ft 6 in Weight 131 lb 8 oz BMI 21.2 BP 116/72 Blood Pressure Location Rt brachial Position Sitting Respiration 14 Pulse 77 Pulse Source Pulse Oximeter Temp 98.6 F Temp Source Oral Pulse Oximetry (%) 98 Oxygen Delivery Method Room Air Intake Visit Reasons: Urinary tract infection Intake Note: Painful urination, frequency. Delinquency Counselor Required: No Allergies No Known Allergies Allergy (Verified 01/03/25 10:24) Medication List - Last Reconciled 03/15/25 by Susan Campos PA-C hydroxyzine HCl 25 mg PO BEDTIME PRN losartan 25 mg PO DAILY prednisone 40 mg (2 x 20 mg) PO DAILY spironolactone 25 mg PO DAILY Tobacco use date assessed: 10/12/24 Dental Screening Dental Screen Date: 01/13/24 HPI Urinary tract infection HPI Details Patient is a 65-year-old female who presents today for an acute problem visit. She thinks that she has a UTI. Two days ago she started with increased urinary frequency and urgency with some burning with urination. Last night she felt like she had the chills but no fever. No flank pain or abdominal pain. No nausea, vomiting or diarrhea. No abnormal vaginal discharge or bleeding CV: Blood pressure today in the office is 116/72. She is currently on losartan 25 mg and spironolactone 25 mg daily GI: History of cirrhosis and following with GI at [facility]. Scheduled to see them in June. She has been stable. [facility] Medical History (Updated 01/03/25 @ 10:46 by Mihaela Toscano PA-C) Cirrhosis HTN (hypertension) Personal history of nicotine dependence Thrombocytopenia Tubular adenoma of colon Hypokalemia Anxiety Surgical History History of foot surgery History of nasal septoplasty History of esophagogastroduodenoscopy (EGD) History of colonoscopy Family History Mother Diabetes mellitus Father Dementia HTN (hypertension) Maternal Grandmother Diabetes mellitus Paternal Grandmother History of breast cancer Social History (Updated 12/05/24 @ 11:28 by OMAR Peraza) Housing: House Alcohol intake: never Patient Tobacco Use Status: Former Tobacco user Years Smoked: (onset 17yo, 1/2ppd x 45yrs, 22pyh - quit 02/2022) e-Cigarette/Vaping Use: Currently Using Second Hand Smoke Exposure: No service: No Current occupational status: retired Current occupation: rt handed Cognitive needs: No Hearing needs: No Vision needs: No Questionnaire Thrive Questionnaire Date Thrive assessed: 08/24/24 I am a: Patient What is your living situation today?: I have a steady place to live Within the past 12 months, did the food you bought not last and you didn't have the money to get more?: Never true Within the past 12 months, did you worry whether your food would run out before you got money to buy more?: Never true Do you have trouble paying for medicines?: No Do you have trouble getting transportation to medical appointments?: No Do you have trouble paying your heating and electricity bill?: No Do you have trouble taking care of your child, family member or friend?: No Do you have trouble with day-to-day activities such as bathing, preparing meals, shopping, managing finances, etc.?: No Are you currently unemployed and looking for a job?: No Are you interested in more education?: No Please select the resources that you would like help with: None Currently or been in a relationship where the following occur: No concerns reported THRIVE Score: 0 CONI-7 AMB Questionnaire CONI-7 Date CONI - 7 assessed: 08/31/24 Source: Developed by Drs. Roscoe Fam, Amanda Hook, Miguel A Rangel and colleagues, with an educational estee from [employer]. Physical exam (Primary Care) Vital Signs: Last Vital Signs Temp 98.6 F 03/15/25 08:42 Pulse 77 03/15/25 08:42 Resp 14 03/15/25 08:42 BP 116/72 03/15/25 08:42 Pulse Ox 98 03/15/25 08:42 Oxygen Delivery Method Room Air 03/15/25 08:42 BMI result Body Mass Index 21.2 Tobacco/Smoking Status: Tobacco use Status Tobacco use date assessed 10/12/24 03/15/25 08:44 Patient Tobacco Use Status Former Tobacco user 03/15/25 08:44 e-Cigarette/Vaping Use Currently Using 03/15/25 08:44 Thrive Assessment: Date of Thrive Assessment Date Thrive assessed 08/24/24 03/15/25 08:44 Currently or been in a relationship where the following occur: No concerns reported Const Orientation/consciousness: patient oriented x3 HENMT Ears: hearing grossly normal bilaterally Neck Thyroid: Thyroid normal Lymphatic: no lymphadenopathy noted Resp Auscultation: clear to auscultation bilaterally Cardio Rate: regular rate Rhythm: regular rhythm Heart sounds: S1 normal heart sound present and S2 normal heart sound present GI Inspection: Yes normal to inspection Palpation (GI): Soft to palpation and Other GI palpation findings present (nontender, no cva tenderness) Auscultation: normoactive bowel sounds Rectal Exam - Female: deferred Skin General skin exam: no rashes or lesions noted Neuro General: patient oriented x3, gait normal and no focal motor deficits Coding Level of Care Code Est Pt Level 4 (89850) Complex EM visit Add On G2211 Diagnoses Alcoholic cirrhosis of liver without ascites K70.30 Ascites presence: without ascites Hepatic cirrhosis type: alcoholic cirrhosis Primary hypertension I10 Hypertension type: primary hypertension Thrombocytopenia D69.6 UTI (urinary tract infection) N39.0 Assessment & Plan Assessment & Plan (1) Cirrhosis: Code(s): K74.60 - Unspecified cirrhosis of liver Category: Medical Qualifiers: Ascites presence: without ascites Hepatic cirrhosis type: alcoholic cirrhosis Qualified Code(s): K70.30 - Alcoholic cirrhosis of liver without ascites Plan: We will monitor labs Has follow up with GI (2) HTN (hypertension): Code(s): I10 - Essential (primary) hypertension Category: Medical Qualifiers: Hypertension type: primary hypertension Qualified Code(s): I10 - Essential (primary) hypertension Plan: WNL (3) Thrombocytopenia: Code(s): D69.6 - Thrombocytopenia, unspecified Category: Medical Plan: We will monitor labs (4) UTI (urinary tract infection): Code(s): N39.0 - Urinary tract infection, site not specified Plan: UA positive for leuks, nitrites and blood. We will treat with Macrobid. Discussed risks and benefits and adverse effects of the medication. Urine culture ordered. She will let me know if anything worsens or changes or fails to improve. Encouraged hydration. Patient understands and agrees with this plan. Orders: Orders Urine Culture Today N39.0 - Urinary tract infection, site not specified Complete Blood Count Auto Diff Today D69.6 - Thrombocytopenia, unspecified, I10 - Essential (primary) hypertension, K70.30 - Alcoholic cirrhosis of liver without ascites TSH reflex Free T4 Today D69.6 - Thrombocytopenia, unspecified, I10 - Essential (primary) hypertension, K70.30 - Alcoholic cirrhosis of liver without ascites Comprehensive Met. Panel Today D69.6 - Thrombocytopenia, unspecified, I10 - Essential (primary) hypertension, K70.30 - Alcoholic cirrhosis of liver without ascites Medications: New nitrofurantoin monohyd/m-cryst 100 mg (Macrobid) must administer with a meal/food 100 mg PO Q12H 14 caps 0RF 7 days
--- OUTSIDE RECORDS SUMMARY | 2025-03-15 09:35 | XMS_ITS | Clinical Summary ---
Author Organization [facility] Address [address] [place], [place] [id number] Phone Care Team Providers Care Biblical Languages Professor Name Role Phone Pcp, Unknown Primary Care [...] 01/03/2010 ZOSTER VACCINES (1 of 2) 01/03/2010 OSTEOPOROSIS SCREENING INITI AL (ONE-TIME) 01/03/2025 INFLUENZA VACCINE (#1) 2025 COVID-19 VACCINE (3 - 2024-2 6 season) 2025 07/24/2020, 06/26/2020 Adult Td,Tdap Booster 10/04/2031 10/03/2021 RSV VACCINE [...] topic Medical Devices Not on file Insurance [facility] [place] [address] [place] [address] Member Subscriber Plan / Payer (Ef fective 2007-Present) Name:Heaven Smith Relation to Subscriber:Self Name:Heaven Smith Payer ID:[id number] (NAIC) Group ID:[id number] Type:PPO Address: [address] [place] [address] Member Subscriber Plan / Payer (Ef fective 2007-Present) Name:Heaven Smith Relation to Subscriber:Self Name:Heaven Smith Payer ID:[id number] (NAIC) Group ID:[id number] Type:PPO Address: [address] [place] [address] [place] [address] [employer] Care Teams Biblical Languages Professor Relationship Specialty Start Date End Date Pcp, Unknown PCP - General 05/08/21 Additional Source Comments The information contained in this document represents components of the legal health record. It is not the complete legal health record.[facility]
--- OUTSIDE RECORDS SUMMARY | 2025-03-15 09:35 | XMS_ITS | Clinical Summary ---
Author Organization [facility] Facility Address [address] [place] [address] Care Team Providers Care Confectionery Drops Machine Operator Name Role Phone Susan Campos PA-C [...] patient's age to complete this topic Insurance [facility] Care Teams Confectionery Drops Machine Operator Relationship Specialty Start Date End Date Susan Campos PA-C PCP - General Physician Configuration Technician 07/17/22
--- OUTSIDE RECORDS SUMMARY | 2025-03-15 09:35 | XMS_ITS | Clinical Summary ---
Author Organization [facility] Address [address] [place] [address] Care Team Providers Care Geography Head Name Role Phone Darleen Dinh PA-C Primary [...] age to complete this topic Care Teams Geography Head Relationship Specialty Start Date End Date Darleen Dinh PA-C [address] [place] [phone] PCP - General Medical Services 03/19/21
== END 2025-03-15 09:00 | disposition home or self-care (01) ==
LOC: HO.HMCFM 08:33
PROVIDERS: Visit Provider Physician Assistant
DX: K70.30 Alcoholic cirrhosis of liver without ascites (principal); I10 Essential (primary) hypertension; D69.6 Thrombocytopenia, unspecified; N39.0 Urinary tract infection, site not specified; Z13.9 Encounter for screening, unspecified

== ENCOUNTER 2025-03-15 10:00 | Outpatient (REF) | payer MEDICARE, SELFPAY | END 2025-03-15 10:01 | disposition home or self-care (01) | LOC: HO.LNP 10:00 | PROVIDERS: Visit Provider Physician Assistant | DX: N39.0 Urinary tract infection, site not specified (principal); K70.30 Alcoholic cirrhosis of liver without ascites; D69.6 Thrombocytopenia, unspecified; I10 Essential (primary) hypertension; Z79.82 Long term (current) use of aspirin; Z79.52 Long term (current) use of systemic steroids; Z79.899 Other long term (current) drug therapy | CPT/HCPCS: 81002; 87086; 99212 ==